=== PATIENT | male | born 1980 | race Caucasian/White ===

== ENCOUNTER 2022-12-04 13:23 | Outpatient (OUT) | payer OTHER, SELFPAY ==
[2022-12-04 14:18] LABS: Basophils Absolute Auto 0.1 10^3/uL (0.0-0.1); Basophils Percent Auto 0.7 % (0.2-2.0); Eosinophils Absolute Auto 0.1 10^3/uL (0.0-0.7); Eosinophils Percent Auto 2.1 % (0.9-7.0); Hemoglobin 17.6 g/dL (14.0-18.0); Immature Granulocytes Abs Auto 0.02 10^3/uL (0.00-0.03); Immature Granulocytes Pct Auto 0.3 % (0.0-0.5); Lymphocytes Absolute Auto 1.7 10^3/uL (1.2-3.8); Lymphocytes Percent Auto 25.4 % (20.5-60.0); Mean Corpuscular HGB Conc 35.2 g/dL (29.9-35.2); Mean Corpuscular Hemoglobin 35.3 pg (25.9-34.0); Mean Corpuscular Volume 100.4 fL (80.0-94.0); Mean Platelet Volume 9.1 fL (9.5-13.5); Monocytes Absolute Auto 0.9 10^3/uL (0.3-0.8); Monocytes Percent Auto 13.4 % (1.7-12.0); Neutrophils Percent Auto 58.1 % (43.0-75.0); Platelet Count 145 10^3/uL (150-450); Red Blood Count 4.98 10^6/uL (4.70-6.10); Red Cell Distribution Width 12.3 % (11.0-15.0); White Blood Count 6.8 10^3/uL (4.0-11.0)
[2022-12-04 15:38] LABS: Estimated Average Glucose 97 mg/dL
[2022-12-04 15:48] LABS: Alanine Aminotransferase 33 U/L (16-63); Albumin Globulin Ratio 0.8; Albumin Level 3.7 g/dL (3.4-5.0); Alkaline Phosphatase 67 U/L (46-116); Anion Gap 14.1; Aspartate Amino Transferase 36 U/L (15-37); BUN Creatinine Ratio 10.6; Bilirubin Direct 0.3 mg/dL (0.0-0.2); Bilirubin Total 1.4 mg/dL (0.2-1.0); Calcium 9.1 mg/dL (8.5-10.1); Carbon Dioxide 23.9 mmol/L (21.0-32.0); Chloride 101 mmol/L (98-107); Chol HDL Ratio 3.8; Cholesterol 179 mg/dL (<=200); Estimated GFR (African America >60 (>=60); Estimated GFR (Non-African Ame >60 (>=60); Globulin 4.4 g/dL; Glucose 97 mg/dL (74-106); HDL Cholesterol 47 mg/dL (40-60); LDL Cholesterol Calculated 114.6 mg/dL; Sodium 135 mmol/L (136-145); Thyroid Stimulating Hormone 2.526 uIU/mL (0.358-3.740); Total Protein 8.1 g/dL (6.4-8.2); Triglycerides 87 mg/dL (<=150); VLDL CHOLESTEROL 17.4 mg/dL
== END 2022-12-04 13:24 | disposition home or self-care (01) ==
PROVIDERS: PCP Family Medicine; Visit Provider Family Medicine
DX: Z00.00 Encounter for general adult medical examination without abnormal findings (principal); E55.9 Vitamin D deficiency, unspecified; Z12.5 Encounter for screening for malignant neoplasm of prostate
CPT/HCPCS: 36415; 80048; 80061; 80076; 82306; 83036; 84443; 85025; G0103

== ENCOUNTER 2023-12-22 15:26 | Outpatient (OUT) | payer OTHER, SELFPAY ==
[2023-12-22 15:49] LABS: Basophils Absolute Auto 0.1 10^3/uL (0.0-0.1); Basophils Percent Auto 1.5 % (0.2-2.0); Eosinophils Absolute Auto 0.1 10^3/uL (0.0-0.7); Hemoglobin 17.6 g/dL (14.0-18.0); Immature Granulocytes Abs Auto 0.01 10^3/uL (0.00-0.03); Immature Granulocytes Pct Auto 0.1 % (0.0-0.5); Lymphocytes Absolute Auto 2.1 10^3/uL (1.2-3.8); Lymphocytes Percent Auto 31.1 % (20.5-60.0); Mean Corpuscular HGB Conc 35.2 g/dL (29.9-35.2); Mean Corpuscular Hemoglobin 35.5 pg (25.9-34.0); Mean Corpuscular Volume 100.8 fL (80.0-94.0); Mean Platelet Volume 8.9 fL (9.5-13.5); Monocytes Percent Auto 14.4 % (1.7-12.0); Neutrophils Absolute Auto 3.5 10^3/uL (1.4-6.5); Neutrophils Percent Auto 50.9 % (43.0-75.0); Platelet Count 158 10^3/uL (150-450); Red Blood Count 4.96 10^6/uL (4.70-6.10); Red Cell Distribution Width 12.1 % (11.0-15.0); White Blood Count 6.9 10^3/uL (4.0-11.0)
[2023-12-22 15:59] LABS: Estimated Average Glucose 97 mg/dL
[2023-12-22 16:26] LABS: Alanine Aminotransferase 66 U/L (16-63); Albumin Globulin Ratio 0.9; Albumin Level 3.6 g/dL (3.4-5.0); Alkaline Phosphatase 85 U/L (46-116); Anion Gap 11.5; Aspartate Amino Transferase 48 U/L (15-37); BUN Creatinine Ratio 6.5; Bilirubin Direct 0.2 mg/dL (0.0-0.2); Bilirubin Total 0.7 mg/dL (0.2-1.0); Calcium 8.8 mg/dL (8.5-10.1); Carbon Dioxide 31.5 mmol/L (21.0-32.0); Chloride 100 mmol/L (98-107); Chol HDL Ratio 3.3; Cholesterol 193 mg/dL (<=200); Estimated GFR (African America >60 (>=60 mL/min/1.73m^2); Estimated GFR (Non-African Ame >60 (>=60 mL/min/1.73m^2); Globulin 4.2 g/dL; Glucose 99 mg/dL (74-106); HDL Cholesterol 59 mg/dL (40-60); Sodium 139 mmol/L (136-145); Total Protein 7.8 g/dL (6.4-8.2); Triglycerides 240 mg/dL (<=150)
== END 2023-12-22 15:27 | disposition home or self-care (01) ==
LOC: LAB 15:27
PROVIDERS: PCP Family Medicine; Visit Provider Family Medicine
DX: Z00.00 Encounter for general adult medical examination without abnormal findings (principal)
CPT/HCPCS: 36415; 80048; 80061; 80076; 83036; 84443; 85025; G0103

== ENCOUNTER 2024-08-10 16:54 | Observation (INO) | payer OTHER, SELFPAY ==
[2024-08-10 17:24] VITALS: BP 132/77; PULSE 98; TEMP 37.4; O2SAT 97; BMI 40.1
--- OUTSIDE RECORDS SUMMARY | 2024-08-10 17:36 | XMS_ITS | CCD ---
Author Organization [facility] Care Team Providers Care Laborer [facility] Name Role Phone DR MING RATLIFF Admitting Unavailable DR MING RATLIFF Attending Unavailable DR MING RATLIFF Primary Care Unavailable DR MING RATLIFF Consulting Ming Saleem MD Primary Care Provider [phone] MING RATLIFF Attending Unavailable MING RATLIFF Attending Unavailable MING RATLIFF Attending Unavailable Medications Current Medications Medication Drug Class(es) Dates Sig (Normalized) Sig (Original) losartan potassium 25 mg oral tablet (9 sources) Angiotensin 2 Receptor Gabriela Start: 01-20-2024 take 1 tablet by mouth once daily losartan (Cozaar) 25 MG tablet Indications: Benign essential hypertension (CMS/HCC) Take 1 tablet (25 mg) by mouth Daily 30 tablet 5 01/20/2024 Active Start: 12-08-2023 take 1 tablet by raphael th once daily losartan (Cozaar) 25 MG tablet Indications: Benign essential hypertension (CMS/HCC) Take 1 tablet (25 mg) by mouth Daily 30 tablet 5 12/08/2023 Active Problems Active Problems Problem Classification Problem Date Documented Da te Episodic/Chronic Essential hypertension (15 sources) Benign essential hypertension; Translations: [Essential (primary) hypertension] Onset: 12-08-2023 12-08-2023 Chronic Other nutritional; endocrine; and metabolic disorders (9 sources) Morbid obesity; Translations: [Morbid (severe) obesity due to excess calories] Onset: 12-08-2023 12-08-2023 Chronic Other nutritional; endocrine; and metabolic disorders (4 sources) Severe obesity; Translations: [Class 2 severe obesity due to excess calories with serious comorbidity and body mass index (BMI) of 39.0 to 39.9 in adult (CMS/HCC)] Onset: 12-08-2023 03-03-2024 Chronic Other screening for suspected conditions (not mental disorders or infectious disease) (2 sources) Patient encounter status; Translations: [Encounter for screening for malignant neoplasm of colon] 03-03-2024 Episodic Past or Other Problems Problem Classification Problem Date Documented Da te Episodic/Chronic Unclassified (2 sources) Patient encounter status 03-03-2024 Results Test Name Value Interpretation Reference Range Facility Provider Letteron 03-18-2024 Provider Letter Provider Letter March 18, 2024 NADEEM NELSONDANIAL [address] [place] [address] : 1980 Dear Mr. Lozada, We have been trying to reach you with no success regarding a referral from Dr Ratliff. It is important that you return our call upon receiving this letter. Also, at the time of your call, please provide us with your current information. Thank you for your prompt attention to this matter. Sincerely, [facility] [phone] Normal [facility] ALL CBC WITH AUTO DIFFon BASOPHILS ABSOLUTE AUTO 0.1 [facility] Basophils/100 WBC (Bld) 1.5 % 0.2 - 2.0 % [facility] Eosinophils/100 WBC (Bld) 2.0 % 0.9 - 7.0 % [facility] Erythrocyte distribution width (RBC) [Ratio] 12.1 % 11.0 - 15.0 % [facility] Hematocrit (Bld) [Volume fraction] 50.0 % 42.0 - 54.0 % [facility] Hemoglobin (Bld) [Mass/Vol] 17.6 g/dL 14.0 - 18.0 g/dL [facility] IMMATURE GRANULOCYTES ABS AUTO 0.01 [facility] Immature granulocytes/100 WBC (Bld) 0.1 % 0.0 - 0.5 % [facility] Interpretation and review of laboratory results Abnormal [facility] LYMPHOCYTES ABSOLUTE AUTO 2.1 [facility] Lymphocytes/100 WBC (Bld) 31.1 % 20.5 - 60.0 % [facility] MCH (RBC) [Entitic mass] 35.5 pg High 25.9 - 34.0 pg [facility] MCHC (RBC) [Mass/Vol] 35.2 g/dL 29.9 - 35.2 g/dL [facility] MCV (RBC) [Entitic vol] 100.8 fL High 80.0 - 94.0 fL [facility] MONOCYTES ABSOLUTE AUTO 1.0 High [facility] Monocytes/100 WBC (Bld) 14.4 % High 1.7 - 12.0 % [facility] NEUTROPHILS ABSOLUTE AUTO 3.5 [facility] Neutrophils/100 WBC (Bld) 50.9 % 43.0 - 75.0 % [facility] Platelet mean volume (Bld) [Entitic vol] 8.9 fL Low 9.5 - 13.5 fL [facility] EO # 0.1 [facility] PLT 158 [facility] RBC 4.96 [facility] WBC 6.9 [facility] CBC AUTO DIFFon 12-24-2021 BASO # 0.1 103/ul Normal 0.0-0.1 [facility] Comment on above: Performed By: #### C BC #### [facility] [address] [place] [address] Dr. Zayra Lincoln Basophils/100 WBC (Bld) 0.7 % Normal 0.2-2.0 [facility] Comment on above: Performed By: #### C BC #### [facility] [address] [address] [address] Zayra Lincoln EO # 0.1 103/ul Normal 0.0-0.7 [facility] Comment on above: Performed By: #### C BC #### [facility] [address] [place] [address] Dr. Zayra Lincoln Eosinophils/100 WBC (Bld) 1.6 % Normal 0.9-7.0 [facility] Comment on above: Performed By: #### C BC #### [facility] [address] [place] [address] Dr. Zayra Lincoln Erythrocyte distribution width (RBC) [Ratio] 11.8 % Normal 11.0-15.0 [facility] Comment on above: Performed By: #### C BC #### [facility] [address] [place] [address] Dr. Zayra Lincoln Hematocrit (Bld) [Volume fraction] 48.2 % Normal 42.0-54.0 [facility] Comment on above: Performed By: #### C BC #### [facility] [address] [place] [address] Dr. Zayra Lincoln Hemoglobin (Bld) [Mass/Vol] 16.9 g/dL Normal 14.0-18.0 [facility] Comment on above: Performed By: #### C BC #### [facility] [address] [address] [address] Zayra Lincoln IG # 0.02 10e3/ul Normal 0.00-0.03 [facility] Comment on above: Performed By: #### C BC #### [facility] [address] [place] [address] Dr. Zayra Lincoln IG % 0.3 % Normal 0.0-0.5 [facility] Comment on above: Performed By: #### C BC #### [facility] [address] [place] [address] Dr. Zayra Lincoln LYMPH # 1.9 103/ul Normal 1.2-3.8 [facility] Comment on above: Performed By: #### C BC #### [facility] [address] [place] [address] Dr. Zayra Lincoln Lymphocytes/100 WBC (Bld) 25.7 % Normal 20.5-60.0 [facility] Comment on above: Performed By: #### C BC #### [facility] [address] [place] [address] Dr. Zayra Lincoln MANUAL DIFF REQ NO Normal [facility] Comment on above: Performed By: #### C BC #### [facility] [address] [place] [address] Dr. Zayra Lincoln MCH (RBC) [Entitic mass] 34.1 pg Critically high 25.9-34.0 [facility] Comment on above: Performed By: #### C BC #### [facility] [address] [place] [address] Dr. Zayra Lincoln MCHC (RBC) [Mass/Vol] 35.1 g/dL Normal 29.9-35.2 [facility] Comment on above: Performed By: #### C BC #### [facility] [address] [place] [address] Dr. Zayra Lincoln MCV (RBC) [Entitic vol] 97.2 fL Critically high 80.0-94.0 [facility] Comment on above: Performed By: #### C BC #### [facility] [address] [address] [address] Zayra Lincoln MONO # 0.9 103/ul Critically high 0.3-0.8 [facility] Comment on above: Performed By: #### C BC #### [facility] [address] [address] [address] Zayra Lincoln Monocytes/100 WBC (Bld) 12.7 % Critically high 1.7-12.0 [facility] Comment on above: Performed By: #### C BC #### [facility] [address] [address] [address] Zayra Lincoln NEUT # 4.3 103/ul Normal 1.4-6.5 [facility] Comment on above: Performed By: #### C BC #### [facility] [address] [place] [address] Dr. Zayra Lincoln Neutrophils/100 WBC (Bld) 59.0 % Normal 43.0-75.0 [facility] Comment on above: Performed By: #### C BC #### [facility] [address] [address] [address] Zayra Lincoln Platelet mean volume (Bld) [Entitic vol] 10.2 fL Normal 9.5-13.5 [facility] Comment on above: Performed By: #### C BC #### [facility] [address] [place] [address] Dr. Zayra Lincoln PLT 136 103/ul Critically low 150-450 [facility] Comment on above: Performed By: #### C BC #### [facility] [address] [address] [address] Zayra Lincoln RBC 4.96 106/ul Normal 4.70-6.10 [facility] Comment on above: Performed By: #### C BC #### [facility] [address] [address] [address] Zayra Lincoln WBC 7.4 103/ul Normal 4.0-11.0 [facility] Comment on above: Performed By: #### C BC #### [facility] [address] [address] [address] Zayra Lincoln GLYCOHEMOGLOBIN A1Con 2021 ADA RECOMMENDATION SEE BELOW Normal [facility] Comment on above: Result Comment: ADA RECOMMENDED LIMIT 4.0 - 6.0 ADA THERAPEUTIC TARGET < 7.0 ACTION SUGGESTED > 7.0 Performed By: #### A 1C #### [facility] [address] [place] [address] Dr. Zayra Lincoln Glucose [Mass/Vol] 100 mg/dL Normal [facility] Comment on above: Performed By: #### A 1C #### [facility] [address] [place] [address] Dr. Zayra Linclon HbA1c (Bld) [Mass fraction] 5.1 % Normal 4.5-6.2 [facility] Comment on above: Performed By: #### A 1C #### [facility] [address] [place] [address] Dr. Zayra Lincoln LIPID PROFILEon 12-24-2021 CHOL-HDL RATIO NORM SEE BELOW Normal [facility] Comment on above: Result Comment: 3.3 - 4.4 LOW RISK 4.4 - 7.1 AVERAGE RISK 7.1 - 11.0 MODERATE RISK >11.0 HIGH RISK Performed By: #### L IPID, TSH, LIVER, BMP #### [facility] [address] [place] [address] Dr. Zayra Lincoln Cholesterol [Mass/Vol] 199 mg/dL Normal <=200 [facility] Comment on above: Performed By: #### L IPID, TSH, LIVER, BMP #### [facility] [address] [place] [address] Dr. Zayra Lincoln Cholesterol in HDL [Mass/Vol] 57 mg/dL Normal 40-60 [facility] Comment on above: Performed By: #### L IPID, TSH, LIVER, BMP #### [facility] [address] [place] [address] Dr. Zayra Lincoln Cholesterol in LDL [Mass/Vol] 115.2 mg/dL Normal [facility] Comment on above: Performed By: #### L IPID, TSH, LIVER, BMP #### [facility] [address] [address] [address] Zayra Lincoln Cholesterol.total/C holesterol in HDL [Mass ratio] 3.5 {ratio} Normal [facility] Comment on above: Performed By: #### L IPID, TSH, LIVER, BMP #### [facility] [address] [address] [address] Zayra Lincoln HDL NORMAL > or = 60 mg/dl - LO W CARDIOVASCULAR RISK <40 mg/dl - HIGH CARDIOVASCULAR RISK Normal [facility] Comment on above: Performed By: #### L IPID, TSH, LIVER, BMP #### [facility] [address] [address] [address] Zayra Lincoln LDL CALC NORMAL SEE BELOW Normal [facility] Comment on above: Result Comment: <100 mg/dl OPTIMAL 100 - 129 mg/dl NEAR OR ABOVE OPTIMAL 130 - 159 mg/dl BORDERLINE HIGH 160 - 189 mg/dl HIGH >190 mg/dl VERY HIGH Performed By: #### L IPID, TSH, LIVER, BMP #### [facility] [address] [address] [address] Zayra Lincoln Triglyceride [Mass/Vol] 134 mg/dL Normal <=150 [facility] Comment on above: Performed By: #### L IPID, TSH, LIVER, BMP #### [facility] [address] [address] [address] Zayra Lincoln VLDL CALC 26.8 mg/dL Normal [facility] Comment on above: Performed By: #### L IPID, TSH, LIVER, BMP #### [facility] [address] [address] [address] Zayra Lincoln LIVER PROFILEon 12-24-2021 Albumin [Mass/Vol] 3.7 g/dL Normal 3.4-5.0 [facility] Comment on above: Performed By: #### L IPID, TSH, LIVER, BMP #### [facility] [address] [address] [address] Zayra Lincoln Albumin/Globulin [Mass ratio] 0.9 {ratio} Normal [facility] Comment on above: Performed By: #### L IPID, TSH, LIVER, BMP #### [facility] [address] [address] [address] Zayra Lincoln ALP [Catalytic activity/Vol] 71 U/L Normal 46-116 [facility] Comment on above: Performed By: #### L IPID, TSH, LIVER, BMP #### [facility] [address] [place] [address] Dr. Zayra Lincoln ALT [Catalytic activity/Vol] 36 U/L Normal 16-63 [facility] Comment on above: Performed By: #### L IPID, TSH, LIVER, BMP #### [facility] [address] [place] [address] Dr. Zayra Lincoln AST [Catalytic activity/Vol] 31 U/L Normal 15-37 [facility] Comment on above: Performed By: #### L IPID, TSH, LIVER, BMP #### [facility] [address] [place] [address] Dr. Zayra Lincoln BILI, CONJUGATED 0.3 mg/dL Critically high 0.0-0.2 [facility] Comment on above: Performed By: #### L IPID, TSH, LIVER, BMP #### [facility] [address] [place] [address] Dr. Zayra Lincoln Bilirubin [Mass/Vol] 1.3 mg/dL Critically high 0.2-1.0 [facility] Comment on above: Performed By: #### L IPID, TSH, LIVER, BMP #### [facility] [address] [place] [address] Dr. Zayra Lincoln Globulin (S) [Mass/Vol] 4.3 g/dL Normal [facility] Comment on above: Performed By: #### L IPID, TSH, LIVER, BMP #### [facility] [address] [address] [address] Zayra Lincoln Protein [Mass/Vol] 8.0 g/dL Normal 6.4-8.2 [facility] Comment on above: Performed By: #### L IPID, TSH, LIVER, BMP #### [facility] [address] [address] [address] Zayra Lincoln PROF CHEM 8 (BAS METB)on Anion gap [Moles/Vol] 12.7 mmol/L Normal [facility] Comment on above: Performed By: #### L IPID, TSH, LIVER, BMP #### [facility] [address] [address] [address] Zayra Lincoln Calcium [Mass/Vol] 9.3 mg/dL Normal 8.5-10.1 [facility] Comment on above: Performed By: #### L IPID, TSH, LIVER, BMP #### [facility] [address] [place] [address] Dr. Zayra Lincoln Chloride [Moles/Vol] 100 mmol/L Normal 98-107 [facility] Comment on above: Performed By: #### L IPID, TSH, LIVER, BMP #### [facility] [address] [place] [address] Dr. Zayra Lincoln CO2 [Moles/Vol] 28.3 mmol/L Normal 21.0-32.0 [facility] Comment on above: Performed By: #### L IPID, TSH, LIVER, BMP #### [facility] [address] [place] [address] Dr. Zayra Lincoln Creatinine [Mass/Vol] 0.98 mg/dL Normal 0.70-1.30 [facility] Comment on above: Performed By: #### L IPID, TSH, LIVER, BMP #### [facility] [address] [place] [address] Dr. Zayra Lincoln EGFR-AF DJIBOUTIAN >60 Normal >=60 [facility] Comment on above: Performed By: #### L IPID, TSH, LIVER, BMP #### [facility] [address] [place] [address] Dr. Zayra Lincoln EGFR-NON AF DJIBOUTIAN >60 Normal >=60 [facility] Comment on above: Performed By: #### L IPID, TSH, LIVER, BMP #### [facility] [address] [address] [address] Zayra Lincoln Glucose [Mass/Vol] 101 mg/dL Normal 74-106 [facility] Comment on above: Performed By: #### L IPID, TSH, LIVER, BMP #### [facility] [address] [place] [address] Dr. Zayra Lincoln Potassium [Moles/Vol] 4.0 mmol/L Normal 3.5-5.1 [facility] Comment on above: Performed By: #### L IPID, TSH, LIVER, BMP #### [facility] [address] [place] [address] Dr. Zayra Lincoln Sodium [Moles/Vol] 137 mmol/L Normal 136-145 [facility] Comment on above: Performed By: #### L IPID, TSH, LIVER, BMP #### [facility] [address] [place] [address] Dr. Zayra Lincoln Urea nitrogen [Mass/Vol] 9.0 mg/dL Normal 7.0-18.0 [facility] Comment on above: Performed By: #### L IPID, TSH, LIVER, BMP #### [facility] [address] [place] [address] Dr. Zayra Lincoln Urea nitrogen/Creatinine [Mass ratio] 9.2 mg/mg Normal [facility] Comment on above: Performed By: #### L IPID, TSH, LIVER, BMP #### [facility] [address] [place] [address] Dr. Zayra Lincoln TSHon 12-24-2021 TSH 2.309 uIU/mL Normal 0.358-3.740 [facility] Comment on above: Performed By: #### L IPID, TSH, LIVER, BMP #### [facility] [address] [place] [address] Dr. Zayra Lincoln VITAMIN D 25 OHon 12-24-2021 VIT D 25-OH 43.4 ng/mL Normal [facility] Comment on above: Performed By: #### P SASC, VITAD #### [facility] [address] [place] [address] Dr. Zayra Lincoln VIT D RANGES SEE BELOW Normal [facility] Comment on above: Result Comment: <20 ng/mL Vit D deficient 20 - <30 ng/mL Vit D insufficient 30 - 100 ng/mL Vit D sufficient >100 ng/mL Potential Toxicity Performed By: #### P SASC, VITAD #### [facility] [address] [address] [address] Zayra Lincoln Neurosurgery Office/Clinic N oteon 04-06-2019 Neurosurgery Office/Clinic Note Chief Complaint Patient states neck Physical Exam Vitals & Measurements BP: 134/86 HT: 185 cm WT: 127 kg DOSE WT: 127 kg BMI: 37.11 Additional Vitals Body Mass Index Measured: 37.11 kg/m2 Peripheral Pulse Rate: 76 bpm BP Position/Location: Sitting, Left arm Assessment/Plan 1. Acute cervical radiculopathy, Cervical radiculopathy at C8 3. Cervical spine degeneration Pleasant 39-year-old right-handed gentleman with a history of hypertension as well as childhood febrile seizures was in his usual state of health 2 days before and noted neck stiffness. On the morning of , he developed severe pain in his right posterior shoulder with radiation into the posterior aspect of his right arm and medial epicondyle of the right arm. By 2018, his pain was even worse. He visited his chiropractor on the day after and while he was suffering 10/10 pain, induction of chiropractic management has found the patient with 80% improvement over the last 3-1/2 weeks. Initially, the patient noted classic paresthetic pain radiating in a C8 distribution with numbness in his fifth digit right hand. This is been associated with weakness. He also had difficulty sleeping secondary to pain such that he would use a recliner. Due to the improvement with chiropractic/time, the patient has become significantly more comfortable such that he now sleeps without difficulty through the evening. He now rates his pain on average between 2-3 over 10 and if he is walking, has essentially no pain. Riding in a car does aggravate his pain to approximately 5/10. Furthermore, the patient believes that right hand weakness seems to be improving. He has no symptoms in his midline cervical spine nor in his left upper extremity or the lower extremities. Patient has no headache, nausea, vomiting, trauma, fever, chills and is eating well. Currently, the patient takes no anyl-gvt-[id number] medication or prescription medication for this condition. 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 He is counseled regarding the deleterious effects of both of these habits, particularly as pertains to his spine-he and his acknowledge Constitutional: [No fevers, chills, sweats] Eye: [No recent visual problems] ENMT: [No ear pain, nasal congestion, sore throat] Respiratory: [No shortness of breath, cough] Cardiovascular: [No Chest pain, palpitations, syncope] Gastrointestinal: [No nausea, vomiting, diarrhea] Genitourinary: [No hematuria] GENERAL PHYSICAL EXAM: GENERAL: well developed, over nourished, no distress HEAD: normocephalic, atraumatic EYES: anicteric, atraumatic MUCOUS MEMBRANES: Moist, no evidence of dehydration NECK: supple, modestly diminished range of motion in extension secondary to creation of supraspinatus pain right side, no deformity noted; no cervical adenopathy; no carotid bruits; no tracheal deviation; no winging of the scapula; no drooping of the shoulder; no evidence of neurotension signs such as Lhermitte's or Spurling sign CHEST: clear CARDIAC: normal heart sounds no murmurs or extra sounds SHOULDER: Full range of motion on active and passive evaluation; no evidence of impingement or rotator cuff tendinopathy, negative empty can testing [] PERIPHERAL NERVES: no tinel's signs carpal, cubital, or peroneal, no digital compression provocation SPINE: no evidence of scoliosis, rib hump, deformities or step-offs. No trigger points or myospasm VASCULAR: strong pulses with rapid capillary refill, no evidence of Raynaud's phenomenon, autonomic disturbance, venous insufficiency, or thoracic outlet syndrome. HIP: no Fabere's or Prince's sign LUMBAR: range of motion normal; no evidence of neurotension signs such as straight leg raise or reverse straight leg raise or femoral stretch test. PAIN BEHAVIOR: No evidence of Rizwan's findings or overt pain behavior. NEUROLOGICAL EXAM: MENTAL STATUS: Awake alert and appropriate with normal mental status exam and executive function CRANIAL NERVES: Round reactive pupils without ophthalmoplegia, no visual field defects to confrontation, no nystagmus, no evidence of Carlos syndrome, equal facies, equal auditory perception to confrontation, bilaterally upgoing palate, midline tongue without atrophy or fasciculations and full range of motion, equal trapezial strength and sternocleidomastoid strength. MOTOR: normal tone and bulk in all groups with full power except intrinsic musculature innervated by C8 right hand where he demonstrates 4/5 power including opposition and abduction; no evidence of atrophy or fasciculations. DEEP TENDON REFLEXES: All reflexes 1-2+ including triceps which are 2+ bilaterally;no evidence of myelopathic features such as Lew's, pectoral reflex, clonus, Babinski SENSORY EXAM: Hypesthesia C8 autonomous zone CEREBELLAR: No lateralization, no dysmetria or dysdiadochokinesia. GAIT: Patient demonstrates full ability to toe and heel walk as well as squat/1 leg squat and demonstrates normal tandem gait; normal base, station, stride length, and katja. Imaging-surgeon independent interpretation: MRI cervical spine [facility] March 2019 of modest quality indicates multilevel degenerative disc disease with sizable disc osteophyte formation C5-6 left side with mild cord deformation but without signal change, disc osteophyte formation C6-7 right side with moderate neuroforaminal narrowing but no cord compression; large soft high intensity disc extrusion C7-T1 right side filling the proximal foramen. 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 While the patient had severe pain and motor neuropathy to begin with, the patient is noted significant improvement in his pain in the last 3-1/2 weeks such that his pain on average is 2-3 over 10 on a VAS scale. Furthermore, the patient reports subjective improvement in motor power. I did review the imaging with the patient and his on large screen TV and made them aware the pathophysiology of degenerative disc disease and opportunities including surgical decompression via laminoforaminotomy/micr odiscectomy on an MIS basis/outpatient. The rationale for said surgery is identified but I confessed that given his significant improvement with palliative care specialist and time, the role for surgery is unclear as he has underlying root injury that will not likely be significantly affected by surgical decompression and will require natural restorative measures through nerve regeneration. I did note that surgery would eliminate the remaining pain that he has but he finds this insufficient to proceed with surgery. We discussed the various options available and he is very comfortable with proceeding with observation. In the interim, he will avoid lifting greater than 10 pounds and avoid any sudden motions of the neck. Patient will be reassessed in 2 to 3 weeks and based on performance, may be a candidate for surgical consideration, re-immersion in chiropractic/physical therapy, or even consideration of reimaging for assessment. I spent approximately 35 minutes with the patient and his and we reviewed imaging on large screen TV. The patient is quite comfortable with avoidance of surgical intervention at this time. He is also educated regarding the deleterious effects of his nicotine and alcohol on spinal health/relationship with advancing disc degeneration. He acknowledges. All questions answered to their satisfaction Problem List/Past Medical History Ongoing Acute cervical radiculopathy Cervical radiculopathy at C8 Cervical spine degeneration Historical No qualifying data Medications No active medications Allergies No Known Allergies Social History Alcohol Current, Beer, 3-5 times per week Home/Environment Feels unsafe at home: No. Sexual History of sexual abuse: No. Substance Abuse Denies All Tobacco 5-9 cigarettes (between 1/4 to 1/2 pack)/day in last 30 days Use:. Family History Cancer: Mother, Grandfather (M) and Grandfather (P).Negative: Grandmother (P). Diabetes: Grandmother (P). Electronically signed by ___ Brenton QUEZADA MD, Bob York 04/06/19 11:50 EST [facility] Provider Letteron 04-06-2019 Provider Letter (Inserted Image. Ann ble to display) Jeffrey Jordan[address] [address] Re: Nadeem Lozada : 1980 Date of Visit: 04/06/2019 Dear Jeffrey Ortega, Thank you for referring Nadeem Lozada to our office. Attached you will find my office visit note. Please contact our office if you have any questions or concerns. Sincerely, Bob Farris III, MD The following document(s) were included in the letter: April 06, 2019 11:38:18 EST - (04/06/2019) Neurosurgery Office Visit Note [facility] Provider Letter (Inserted Image. Ann ble to display) Ming Ratliff MD [address] [place] [address] Re: Nadeem Lozada : 1980 Date of Visit: 04/06/2019 Dear Ming Ratliff, Thank you for referring Nadeem Lozada to our office. Attached you will find my office visit note. Please contact our office if you have any questions or concerns. Sincerely, Bob Farris III, MD The following document(s) were included in the letter: April 06, 2019 11:38:18 EST - (04/06/2019) Neurosurgery Office Visit Note [facility] Provider Letter (Inserted Image. Ann ble to display) Ming Ratliff MD [address] [place] [address] Re: Nadeem Nelsondanial Date of Visit: 04/06/2019 Dear Ming Ratliff, Let me know if you have any questions or concerns. Sincerely, DAMIEN Minaya MD C Providers: Jeffrey Ortega The following document(s) were included in the letter: April 06, 2019 11:38:18 EST - (04/06/2019) Neurosurgery Office Visit Note [facility] Vital Signs Date Time Vital Sign Value Performing Clinician Rochellei maggie 03-03-2024 15:29-0500 Body height 182.9 cm Ming Ratliff MD Work Phone: [facility] 03-03-2024 15:29-0500 Body mass index (BMI) [Ratio] 39.6 kg/m2 Ming Ratliff MD Work Phone: [facility] 03-03-2024 15:29-0500 Body temperature 96.6 [degF] Ming Ratliff MD Work Phone: [facility] 03-03-2024 15:29-0500 Body weight 132.45 kg Ming Ratliff MD Work Phone: [facility] 03-03-2024 15:29-0500 Diastolic blood pressure 76 mm[Hg] Ming Ratliff MD Work Phone: [facility] 03-03-2024 15:29-0500 Heart rate 98 /min Ming Ratliff MD Work Phone: [facility] 03-03-2024 15:29-0500 Respiratory rate 20 /min Ming Ratliff MD Work Phone: [facility] 03-03-2024 15:29-0500 SaO2% (BldA) [Mass fraction] 97 % Ming Ratliff MD Work Phone: [facility] 03-03-2024 15:29-0500 Systolic blood pressure 128 mm[Hg] Ming Ratliff MD Work Phone: [facility] 12-24-2023 14:35-0400 Body height 182.9 cm Ming Ratliff MD Work Phone: [facility] 12-24-2023 14:35-0400 Body mass index (BMI) [Ratio] 40.69 kg/m2 Ming Ratliff MD Work Phone: [facility] 12-24-2023 14:35-0400 Body temperature 96.21 [degF] Ming Ratliff MD Work Phone: [facility] 12-24-2023 14:35-0400 Body weight 136.08 kg Ming Ratliff MD Work Phone: [facility] 12-24-2023 14:35-0400 Diastolic blood pressure 98 mm[Hg] Ming Ratliff MD Work Phone: [facility] 12-24-2023 14:35-0400 Heart rate 111 /min Ming Ratliff MD Work Phone: [facility] 12-24-2023 14:35-0400 Respiratory rate 18 /min Ming Ratliff MD Work Phone: [facility] 12-24-2023 14:35-0400 SaO2% (BldA) [Mass fraction] 97 % Ming Ratliff MD Work Phone: [facility] 12-24-2023 14:35-0400 Systolic blood pressure 160 mm[Hg] Ming Ratliff MD Work Phone: [facility] 12-08-2023 15:07-0400 Body height 182.9 cm Ming Ratliff MD Work Phone: [facility] 12-08-2023 15:07-0400 Body mass index (BMI) [Ratio] 40.69 kg/m2 Ming Ratliff MD Work Phone: [facility] 12-08-2023 15:07-0400 Body temperature 97.5 [degF] Ming Ratliff MD Work Phone: [facility] 12-08-2023 15:07-0400 Body weight 136.08 kg Ming Ratliff MD Work Phone: [facility] 12-08-2023 15:07-0400 Diastolic blood pressure 100 mm[Hg] Ming Ratliff MD Work Phone: [facility] 12-08-2023 15:07-0400 Heart rate 93 /min Ming Ratliff MD Work Phone: [facility] 12-08-2023 15:07-0400 Respiratory rate 18 /min Ming Ratliff MD Work Phone: [facility] 12-08-2023 15:07-0400 SaO2% (BldA) [Mass fraction] 96 % Ming Ratliff MD Work Phone: [facility] 12-08-2023 15:07-0400 Systolic blood pressure 164 mm[Hg] Ming Ratliff MD Work Phone: [facility] Encounters Encounter Date Encounter Type Care Provider Facility Start: 03-07-2024 ambulatory Facility:[facility] Start: 03-04-2024 ambulatory Facility:[facility] Start: 03-03-2024 End: 03-03-2024 ambulatory MING RATLIFF Not Available Start: 03-03-2024 End: 03-03-2024 Office outpatient visit 15 minutes Ming Ratliff MD Work Phone: [facility] Comment on above: Benign essential hyp ertension (CMS/HCC) (Primary Dx); Class 2 severe obesity due to excess calories with serious comorbidity and body mass index (BMI) of 39.0 to 39.9 in adult (CMS/HCC); Colon cancer screening Start: 03-03-2024 End: 03-03-2024 Bamboo flowsheet Ming Ratliff MD Work Phone: [facility] Start: 03-03-2024 End: 03-03-2024 Bamboo flowsheet Ming Ratliff MD Work Phone: [facility] Start: 12-24-2023 End: 12-24-2023 Office outpatient visit 15 minutes Ming Ratliff MD Work Phone: [facility] Comment on above: Benign essential hyp ertension (CMS/HCC) (Primary Dx) Start: 12-24-2023 End: 12-24-2023 ambulatory MING RATLIFF Not Available Start: 12-24-2023 End: 12-24-2023 Bamboo flowsheet Ming Ratliff MD Work Phone: [facility] Start: 12-24-2023 End: 12-24-2023 Bamboo flowsheet Ming Ratliff MD Work Phone: [facility] Start: 12-22-2023 End: 12-22-2023 Clinisync Result Encounter Ming Ratliff MD Work Phone: [facility] Unsolicited Start: 12-22-2023 End: 12-22-2023 Clinisync Result Encounter Ming Ratliff MD Work Phone: [facility] Unsolicited Start: 12-08-2023 End: 12-08-2023 Periodic preventive med est patient 40-64yrs Ming Ratliff MD Work Phone: [facility] Comment on above: Annual physical exam (Primary Dx); Benign essential hypertension (CMS/HCC); Morbid obesity due to excess calories (CMS/HCC) Start: 12-08-2023 End: 12-08-2023 ambulatory MING RATLIFF Not Available Start: 12-08-2023 End: 12-08-2023 Bamboo flowsheet Ming Ratliff MD Work Phone: [facility] Start: 12-08-2023 End: 12-08-2023 Bamboo flowsheet Ming Ratliff MD Work Phone: [facility] Start: 12-08-2023 End: 12-08-2023 Patient encounter procedure Ming Ratliff MD Work Phone: [facility] Start: 12-24-2021 End: 12-25-[address] MING RATLIFF Facility:[facility] Procedures Date Procedure Procedure Detail Performing Clinician Start: 12-22-2023 ALL CBC WITH AUTO DIFF Ming Ratliff MD Work Phone: Start: 12-24-[address] MING SIBLEY Comment on above: Performed By: #### P SASC, VITAD #### [facility] [address] [place] [address] Dr. Zayra Lincoln Plan of Treatment Date Care Activity Detail Author Start: 09-01-2024 End: 09-01-2024 Patient encounter procedure 09/01/2024 3:00 PM EDT Office Visit [facility] [address] [place] [address] Ming Ratliff MD [address] [place] [phone] [facility] Start: 03-03-2024 End: 03-03-2024 Patient encounter procedure 03/03/2024 3:15 PM EST Office Visit [facility] [address] [place] [address] Ming Ratliff MD [address] [place] [phone] [facility] Start: 01-14-2024 End: 01-14-2024 Patient encounter procedure 01/14/2024 3:00 PM EDT Office Visit [facility] [address] [place] [address] Ming Ratliff MD [address] [place] [phone] [facility] Start: 12-24-2023 End: 12-24-2023 Patient encounter procedure [facility] Comment on above: Arrived Start: 12-08-2023 End: 12-08-2023 Patient encounter procedure 12/08/2023 3:00 PM EDT Office Visit [facility] [address] [place] [address] Ming Ratliff MD [address] [place] [phone] Arrived [facility] Comment on above: Arrived Start: 12-08-2023 End: 12-07-2024 Basic metabolic 1998 panel - Serum or Plasma Basic metabolic panel Lab Routine Annual physical exam Expected: 12/08/2023 (Approximate), Expires: 12/07/2024 [facility] Comment on above: Expected: 12/08/2023 (Approximate), Expires: 12/07/2024 Start: 12-08-2023 End: 12-07-2024 CBC W Auto Differential panel - Blood CBC and differential Lab Routine Annual physical exam Expected: 12/08/2023 (Approximate), Expires: 12/07/2024 [facility] Comment on above: Expected: 12/08/2023 (Approximate), Expires: 12/07/2024 Start: 12-08-2023 End: 12-07-2024 Hemoglobin A1c/Hemoglobin.total in Blood Hemoglobin A1c Lab Routine Annual physical exam Expected: 12/08/2023 (Approximate), Expires: 12/07/2024 [facility] Work Phone: Comment on above: Expected: 12/08/2023 (Approximate), Expires: 12/07/2024 Start: 12-08-2023 End: 12-07-2024 Hepatic function 2000 panel - Serum or Plasma Hepatic function panel Lab Routine Annual physical exam Expected: 12/08/2023 (Approximate), Expires: 12/07/2024 [facility] Comment on above: Expected: 12/08/2023 (Approximate), Expires: 12/07/2024 Start: 12-08-2023 End: 12-07-2024 Lipid 1996 panel - Serum or Plasma Lipid panel Lab Routine Annual physical exam Expected: 12/08/2023 (Approximate), Expires: 12/07/2024 [facility] Comment on above: Expected: 12/08/2023 (Approximate), Expires: 12/07/2024 Start: 12-08-2023 End: 12-07-2024 Prostate specific Ag [Mass/volume] in Serum or Plasma PSA Lab Routine Annual physical exam Expected: 12/08/2023 (Approximate), Expires: 12/07/2024 [facility] Comment on above: Expected: 12/08/2023 (Approximate), Expires: 12/07/2024 Start: 12-08-2023 End: 12-07-2024 Thyrotropin [Units/volume] in Serum or Plasma TSH Lab Routine Annual physical exam Expected: 12/08/2023 (Approximate), Expires: 12/07/2024 [facility] Comment on above: Expected: 12/08/2023 (Approximate), Expires: 12/07/2024 Start: 11-15-2023 Influenza vaccination Influenza Vacc ine (#1) [facility] Start: 1980 Screening for malign ant neoplasm of colon [facility] Payers Date Payer Category Payer Private Health Insurance [facility] [id number] 2023 Unknown [id number] 2022 Unknown [id number] 1980 Unknown [id number] 1980 Unknown [id number] 1979 Unknown [id number] 1979 Unknown [id number] 1959 Unknown [id number] 1959 Unknown [id number] Social History Date Type Detail Facility Start: 12-08-2023 [facility] History of tobacco use Cigarette Smoker [facility] Start: 12-08-2023 Tobacco use and exposure Smokeless t obacco non-user [facility] Start: 12-08-2023 End: 03-03-2024 History of Social function [facility] Start: 12-08-2023 End: 03-03-2024 Tobacco use panel [facility] Start: 1980 Sex assigned at Not on file [facility] smoking consumption unknown [facility] History of Present illness Narrative 03-03-2024 Ming Ratliff MD - 03/03/2024 3:41 PM Elyssa Ratliff MD - 03/03/2024 3:40 PM Elyssa Ratliff MD - 03/03/2024 3:15 PM EST Note Date & Type Note Facility 03-03-2024 History of Presen t illness Narrative Associated Problem(s): Class 2 severe obesity due to excess calories with serious comorbidity and body mass index (BMI) of 39.0 to 39.9 in adult (CMS/HCC) Weight down 8 pounds since last visit. Discussed proper diet and regular aerobic exercise. Recommend Weight Watchers and need to limit calories and smaller portions. Need to increase activity and regular aerobic exercise several days a week for 30 minutes at a time. Associated Problem(s): Benign essential hypertension ([facility]) BP controlled and monitor PRN. Images from the original note were not included. Subjective Patient ID: Nadeem Lozada is a 44 y.o. male who presents for Follow-up (1m). Follow up HTN and weight. Patient feels well today. Checking BP PRN and typically controlled. BP normal today. Taking medication daily and tolerating without side effects. Weight down 8 pounds since last visit. Tries to stay active around house. Tries to watch diet and eat healthy. Increased fruits and vegetables. Smaller portions and limits snacking. Tries to limit total daily calories. Review of Systems Constitutional: Negative for fatigue. Respiratory: Negative for cough, shortness of breath and wheezing. Cardiovascular: Negative for chest pain and palpitations. Gastrointestinal: Negative for abdominal pain, diarrhea, nausea and vomiting. Genitourinary: Negative for dysuria. Objective Physical Exam Constitutional: General: He is not in acute distress. Appearance: Normal appearance. HENT: Head: Normocephalic. Right Ear: Tympanic membrane and ear canal normal. Left Ear: Tympanic membrane and ear canal normal. Eyes: Extraocular Movements: Extraocular movements intact. Pupils: Pupils are equal, round, and reactive to light. Cardiovascular: Rate and Rhythm: Normal rate and regular rhythm. Heart sounds: No murmur heard. No friction rub. No gallop. Pulmonary: Breath sounds: Normal breath sounds. No wheezing, rhonchi or rales. Abdominal: General: Bowel sounds are normal. There is no distension. Palpations: Abdomen is soft. Tenderness: There is no abdominal tenderness. There is no guarding or rebound. Musculoskeletal: Left lower leg: No edema. Neurological: Mental Status: He is alert. Assessment/Plan Problem List Items Addressed This Visit Benign essential hypertension (CMS/HCC) - Primary BP controlled and monitor PRN. Class 2 severe obesity due to excess calories with serious comorbidity and body mass index (BMI) of 39.0 to 39.9 in adult (CMS/HCC) Weight down 8 pounds since last visit. Discussed proper diet and regular aerobic exercise. Recommend Weight Watchers and need to limit calories and smaller portions. Need to increase activity and regular aerobic exercise several days a week for 30 minutes at a time. Other Visit Diagnoses Colon cancer screening Relevant Orders Ambulatory referral to General Surgery documented in this encounter [facility] History of Present illness Narrative 12-24-2023 Ming Ratliff MD - 12/24/2023 2:57 PM EDTMjoanna Ratliff MD - 12/24/2023 2:30 PM EDT Note Date & Type Note Facility 12-24-2023 History of Presen t illness Narrative Associated Problem(s): Benign essential hypertension (CMS/HCC) BP controlled and monitor PRN. Discussed DASH diet. Images from the original note were not included. Subjective Patient ID: Nadeem Lozada is a 43 y.o. male who presents for Follow-up (Bp running low?). Follow up HTN. Last visit added losartan for HTN and initially did well. Monitors BP daily. BP improved and normal then started to go low. BP 100/64 and developed severe fatigue. Mild symptoms with position changes and if up and moving. Stopped medication and BP improved. Over the next few days BP started to elevated and 160/98. Resumed medication for past week and BP improved. BP elevated today but walked here from work. BP 132/93 earlier today. Review of Systems Constitutional: Negative for fatigue. Respiratory: Negative for cough, shortness of breath and wheezing. Cardiovascular: Negative for chest pain and palpitations. Gastrointestinal: Negative for abdominal pain, diarrhea, nausea and vomiting. Genitourinary: Negative for dysuria. Objective Physical Exam Constitutional: General: He is not in acute distress. Appearance: Normal appearance. HENT: Head: Normocephalic. Right Ear: Tympanic membrane and ear canal normal. Left Ear: Tympanic membrane and ear canal normal. Eyes: Extraocular Movements: Extraocular movements intact. Pupils: Pupils are equal, round, and reactive to light. Cardiovascular: Rate and Rhythm: Normal rate and regular rhythm. Heart sounds: No murmur heard. No friction rub. No gallop. Pulmonary: Breath sounds: Normal breath sounds. No wheezing, rhonchi or rales. Abdominal: General: Bowel sounds are normal. There is no distension. Palpations: Abdomen is soft. Tenderness: There is no abdominal tenderness. There is no guarding or rebound. Musculoskeletal: Left lower leg: No edema. Neurological: Mental Status: He is alert. Assessment/Plan Problem List Items Addressed This Visit Benign essential hypertension (CMS/HCC) - Primary BP controlled and monitor PRN. Discussed DASH diet. documented in this encounter [facility] History of Present illness Narrative 12-08-2023 Ming Ratliff MD - 12/08/2023 4:20 PM Charles Ratliff MD - 12/08/2023 4:20 PM Charles Ratliff MD - 12/08/2023 4:19 PM Charles Ratliff MD - 12/08/2023 3:00 PM EDT Note Date & Type Note Facility 12-08-2023 History of Presen t illness Narrative Associated Problem(s): Morbid obesity due to excess calories (CMS/HCC) Discussed proper diet and regular aerobic exercise. Recommend Weight Watchers and need to limit calories and smaller portions. Need to increase activity and regular aerobic exercise several days a week for 30 minutes at a time. Associated Problem(s): Benign essential hypertension (CMS/HCC) BP elevated and start losartan. Monitor BP PRN. Discussed DASH diet. Associated Problem(s): Annual physical exam Due for labs. Discussed proper diet and regular aerobic exercise. Need aerobic exercise 5-6 days a week for 30 minutes at a time. Smaller portions and limit total calories. Colonoscopy after age 45. Tetanus every 10 years. Advised not to smoke. Discussed daily Aspirin therapy. Images from the original note were not included. Subjective Patient ID: Nadeem Lozada is a 43 y.o. male who presents for Annual Exam (wellness). Presents for annual PE. Patient feels well today. Weight up 4 pounds in past year. Changed jobs and no longer active at work. Tries to increase activity and exercise on own. Tries to watch diet and eat healthy. Increased fruits and vegetables. Smaller portions and limits snacking. Tries to limit total daily calories. Due for labs. BP elevated over the past several weeks. Checking PRN and 140-150 systolic. BP 164/100 today. Not on medication for several years. Review of Systems Constitutional: Negative for fatigue. Respiratory: Negative for cough, shortness of breath and wheezing. Cardiovascular: Negative for chest pain and palpitations. Gastrointestinal: Negative for abdominal pain, diarrhea, nausea and vomiting. Genitourinary: Negative for dysuria. Objective Physical Exam Constitutional: General: He is not in acute distress. Appearance: Normal appearance. HENT: Head: Normocephalic. Right Ear: Tympanic membrane and ear canal normal. Left Ear: Tympanic membrane and ear canal normal. Eyes: Extraocular Movements: Extraocular movements intact. Pupils: Pupils are equal, round, and reactive to light. Cardiovascular: Rate and Rhythm: Normal rate and regular rhythm. Heart sounds: No murmur heard. No friction rub. No gallop. Pulmonary: Breath sounds: Normal breath sounds. No wheezing, rhonchi or rales. Abdominal: General: Bowel sounds are normal. There is no distension. Palpations: Abdomen is soft. Tenderness: There is no abdominal tenderness. There is no guarding or rebound. Musculoskeletal: General: Normal range of motion. Left lower leg: No edema. Neurological: General: No focal deficit present. Mental Status: He is alert. Cranial Nerves: No cranial nerve deficit. Deep Tendon Reflexes: Reflexes normal. Assessment/Plan Problem List Items Addressed This Visit Annual physical exam - Primary Due for labs. Discussed proper diet and regular aerobic exercise. Need aerobic exercise 5-6 days a week for 30 minutes at a time. Smaller portions and limit total calories. Colonoscopy after age 45. Tetanus every 10 years. Advised not to smoke. Discussed daily Aspirin therapy. Relevant Orders Hemoglobin A1c Basic metabolic panel CBC and differential Hepatic function panel Lipid panel PSA TSH Benign essential hypertension (CMS/HCC) BP elevated and start losartan. Monitor BP PRN. Discussed DASH diet. Relevant Medications losartan (Cozaar) 25 MG tablet Morbid obesity due to excess calories (CMS/HCC) Discussed proper diet and regular aerobic exercise. Recommend Weight Watchers and need to limit calories and smaller portions. Need to increase activity and regular aerobic exercise several days a week for 30 minutes at a time. documented in this encounter [facility] Evaluation note Note Date & Type Note Facility Evaluation note Diagnosis Benign essential hypertension (CMS/HCC)- Primary Essential hypertension, benign documented in this encounter [facility] Evaluation note Note Date & Type Note Facility Evaluation note Diagnosis Annual physical exam- Primary Routine general medical examination at a health care facility Benign essential hypertension (CMS/HCC) Essential hypertension, benign Morbid obesity due to excess calories (CMS/HCC) documented in this encounter [facility] Evaluation note Note Date & Type Note Facility Evaluation note Diagnosis Annual physical exam- Primary Routine general medical examination at a health care facility Benign essential hypertension (CMS/HCC) Essential hypertension, benign Morbid obesity due to excess calories (CMS/HCC) Benign essential hypertension (CMS/HCC)- Primary Essential hypertension, benign Benign essential hypertension (CMS/HCC)- Primary Essential hypertension, benign Class 2 severe obesity due to excess calories with serious comorbidity and body mass index (BMI) of 39.0 to 39.9 in adult (CMS/HCC) Colon cancer screening Special screening for malignant neoplasms, colon documented in this encounter [facility] Healthcare Summary Purpose Family History No Family History Records FoundNo Family History Records FoundNo Family History Records FoundNo Family History Records Found Advance Directives No Advanced Directives Records FoundNo Advanced Directives Records FoundNo Advanced Directives Records FoundNo Advanced Directives Records Found Additional Source Comments (unrecognized sect ion and content) No Status Records FoundNo Status Records FoundNo Status Records FoundNo Status Records Found INFORMATION SOURCE (unrecogn ized section and content) DATE CREATED AUTHOR 04/07/2019 [facility] DATE CREATED AUTHOR AUTHOR'S ORGANIZ ATION 12/25/2021 [facility] DATE CREATED AUTHOR AUTHOR'S ORGANIZ ATION 03/07/2024 [facility] EPIC DATE CREATED AUTHOR AUTHOR'S ORGANIZ ATION 03/25/2024 [facility] Care Teams (unrecognized sec tion and content) [facility] Relationship Specialty Start Date End Date Ming Ratliff MD [address] [place] [id number] PCP - General Family Medicine 12/08/23 [facility] Relationship Specialty Start Date End Date Ming Ratliff MD [address] [place] [phone] PCP - General Family Medicine 12/08/23 [facility] Relationship Specialty Start Date End Date Ming Ratliff MD [address] [place] [phone] PCP - General Family Medicine 12/08/23 [facility] Relationship Specialty Start Date End Date Ming Ratliff MD [address] [place] [phone] PCP - General Family Medicine 12/08/23 [facility] Relationship Specialty Start Date End Date Ming Ratliff MD [address] [place] [phone] PCP - General Family Medicine 12/08/23 [facility] Relationship Specialty Start Date End Date Ming Ratliff MD [address] [place] [address] PCP - General Family Medicine 12/08/23 Reason for Visit (unrecogniz ed section and content) Reason Comments Follow-up Bp running low? Reason Comments Annual Exam wellness Reason Comments Follow-up 1m FOR RECORDS PERTAINING TO PATIENTS WHO ARE OR HAVE BEEN ENROLLED IN A CHEMICAL DEPENDENCY/SUBSTANCEABUSE PROGRAM, SOME INFORMATION MAY BE OMITTED. This clinical summary was aggregated from multiple sources. Caution should be exercised in using it in the provision of clinical care. This summary normalizes information from multiple sources, and as a consequence, information in this document may materially change the coding, format and clinical context of patient data. In addition, data may be omitted in some cases. CLINICAL DECISIONS SHOULD BE BASED ON THE PRIMARY CLINICAL RECORDS. [employer] provides no warranty or guarantee of the accuracy or completeness of information in this document.
[2024-08-10 17:50] LABS: Hemoglobin 17.3 g/dL (14.0-18.0); Mean Corpuscular Hemoglobin 35.8 pg (25.9-34.0); Mean Corpuscular Volume 99.4 fL (80.0-94.0); Platelet Count 138 10^3/uL (150-450); Red Blood Count 4.83 10^6/uL (4.70-6.10); Red Cell Distribution Width 12.4 % (11.0-15.0); White Blood Count 18.3 10^3/uL (4.0-11.0)
[2024-08-10 18:01] LABS: Anion Gap 14.3; BUN Creatinine Ratio 14.4; Calcium 9.5 mg/dL (8.5-10.1); Carbon Dioxide 27.6 mmol/L (21.0-32.0); Chloride 98 mmol/L (98-107); Estimated GFR (African America >60 (>=60 mL/min/1.73m^2); Estimated GFR (Non-African Ame >60 (>=60 mL/min/1.73m^2); Glucose 103 mg/dL (74-106); Potassium 3.9 mmol/L (3.5-5.1); Sodium 136 mmol/L (136-145)
--- NOTE | 2024-08-10 18:03 | ED.GENADUL1 ---
HPI HPI - General Adult General Chief complaint: Animal Bite Stated complaint: CAT BITE Time Seen by Provider: 08/10/24 17:36 Source: patient and family Mode of arrival: walk-in Limitations: no limitations History of Present Illness HPI narrative: 44-year-old male presents to the emergency department for redness and swelling to the left hand. He was bitten by a cat 3 days ago. Yesterday he was seen at urgent care and prescribed Augmentin. It has been more than 20 years since he has had a tetanus shot. He has had increasing redness and swelling in his hand. He has not had a fever or drainage. No other injury was sustained. Related Data Allergies Allergy/AdvReac Type Severity Reaction Status Date / Time No Known Drug Allergies Allergy Verified 08/10/24 17:24 Opioid HPI Opioid Management Most Recent Opioid Data: Last Pain Scale 8 Today, 17:24 Review of Systems ROS Narrative A ten point review of systems is negative except as noted above. PFSH PFSH Social History Little interest or pleasure in doing things: not at all Feeling down, depressed, or hopeless: not at all Exam Narrative Exam Narrative: Nurses note and vital signs reviewed and patient is not hypoxic. General: The patient appears well and in no apparent distress. Patient is resting comfortably on cart. Skin: Warm, dry, no pallor noted. There is no rash noted. Head: Normocephalic, atraumatic Eye: Normal conjunctiva, no drainage Ears, Nose, Mouth, and Throat: oral mucosa is moist. Nares patent. Cardiovascular: Regular Rate and Rhythm Respiratory: Patient is in no distress, no accessory muscle use, lungs are clear to auscultation, no wheezing, rales or rhonchi Back: non-tender GI: Soft and nontender Musculoskeletal: The left hand has erythema and swelling. There is no drainage. He has some healing puncture macias. Fingers have good range of motion. He has a small amount of lymphangitis on the left forearm, flexor side. Neurological: A&O, normal speech Psychiatric: Cooperative Constitutional Vital Signs, click to edit/add: Last Vital Signs Temp 99.4 F 08/10/24 17:24 Pulse 98 H 08/10/24 17:24 Resp 18 08/10/24 17:24 BP 132/77 08/10/24 17:24 Pulse Ox 97 08/10/24 17:24 O2 Del Method Room Air 08/10/24 17:24 Course Vital Signs Vital signs: Vital Signs Temperature 99.4 F 08/10/24 17:24 Pulse Rate 98 H 08/10/24 17:24 Respiratory Rate 18 08/10/24 17:24 Blood Pressure 132/77 08/10/24 17:24 Pulse Oximetry 97 08/10/24 17:24 Oxygen Delivery Method Room Air 08/10/24 17:24 Temperature 99.4 F 08/10/24 17:24 Pulse Rate 98 H 08/10/24 17:24 Respiratory Rate 18 08/10/24 17:24 Blood Pressure 132/77 08/10/24 17:24 Pulse Oximetry 97 08/10/24 17:24 Oxygen Delivery Method Room Air 08/10/24 17:24 Medical Decision Making MDM Narrative Medical decision making narrative: Blood cultures were obtained and he was given IV Unasyn. Tetanus status is updated and he is being admitted for IV antibiotics. Treatment diagnosis and disposition were discussed with the patient. Differential Diagnosis Differential Diagnosis: Cellulitis, abscess, foreign body Lab Data Lab results reviewed: Yes I reviewed the patient's lab results Labs: Lab Results 08/10/24 Range/Units 17:43 WBC 18.3 H (4.0-11.0) 10^3/uL RBC 4.83 (4.70-6.10) 10^6/uL Hgb 17.3 (14.0-18.0) g/dL Hct 48.0 (42.0-54.0) % MCV 99.4 H (80.0-94.0) fL MCH 35.8 H (25.9-34.0) pg MCHC 36.0 H (29.9-35.2) g/dL RDW 12.4 (11.0-15.0) % Plt Count 138 L (150-450) 10^3/uL MPV 9.0 L (9.5-13.5) fL Imaging Data Left hand: My impression: No fracture or foreign body Discharge Plan Discharge Chief Complaint: Animal Bite Clinical Impression: Dog bite, Cellulitis of left hand Patient Disposition: Admitted as Observation Time of Disposition Decision: 18:03 Condition: Fair
[2024-08-10 18:12] LABS: Lactate/Lactic Acid 1.2 mmol/L (0.4-2.0)
[2024-08-10] MEDS: AMPICILLIN SODIUM/SULBACTAM NA 3 GM in 0.9 % SODIUM CHLORIDE 100 ML IV (18:16)
[2024-08-10] MEDS: ADACEL DIPH,PERTUSS(ACELL),TET VAC/PF 0.5 ML ADULT SYRINGE IM (18:25)
[2024-08-10 18:36] LABS: Lymphocytes Absolute Manual 1.83 10^3/uL (1.20-3.80); Monocytes Absolute Manual 1.64 10^3/uL (0.30-0.80); Segmented Neut Absolute Manual 14.82 10^3/uL (1.4-6.5)
--- OUTSIDE RECORDS SUMMARY | 2024-08-10 19:05 | XMS_ITS | CCD ---
Author Organization [facility] Care Team Providers Care Activities Specialist Name Role Phone DR MING RATLIFF Admitting Unavailable DR MING RATLIFF Attending Unavailable DR MING RATLIFF Primary Care Unavailable DR MING RATLIFF Consulting Ming Saleem MD Primary Care Provider [phone] MING RATLIFF Attending Unavailable MING RATLIFF Attending [...] 2024 NADEEM NELSONDANIAL [address] [place] [address] : 1980 Dear Mr. Lozada, We have been trying to reach you with no success regarding a referral from Dr Ratliff. It is important that you return our call upon receiving this letter. Also, at the time of your call, please provide us with your current information. Thank you for your prompt attention to this matter. Sincerely, [facility] [phone] Normal [facility] ALL CBC WITH AUTO DIFFon BASOPHILS ABSOLUTE AUTO 0.1 [facility] Basophils/100 WBC (Bld) 1.5 % 0.2 - 2.0 % [facility] Eosinophils/100 WBC (Bld) 2.0 % 0.9 - 7.0 % [facility] Erythrocyte distribution width (RBC) [Ratio] 12.1 % 11.0 - 15.0 % [facility] Hematocrit (Bld) [Volume fraction] 50.0 % 42.0 - 54.0 % [facility] Hemoglobin (Bld) [Mass/Vol] 17.6 g/dL 14.0 - 18.0 g/dL [facility] IMMATURE GRANULOCYTES ABS AUTO 0.01 [facility] Immature granulocytes/100 WBC (Bld) 0.1 % 0.0 - 0.5 % [facility] of [facility] results Abnormal [facility] LYMPHOCYTES ABSOLUTE AUTO 2.1 [facility] Lymphocytes/100 WBC (Bld) 31.1 % 20.5 - 60.0 % [facility] MCH (RBC) [Entitic mass] 35.5 pg High 25.9 - 34.0 pg [facility] MCHC (RBC) [Mass/Vol] 35.2 g/dL 29.9 - 35.2 g/dL [facility] MCV (RBC) [Entitic vol] 100.8 fL High 80.0 - 94.0 fL [facility] MONOCYTES ABSOLUTE AUTO 1.0 High [facility] Monocytes/100 WBC (Bld) 14.4 % High 1.7 - 12.0 % [facility] NEUTROPHILS ABSOLUTE AUTO 3.5 [facility] Neutrophils/100 WBC (Bld) 50.9 % 43.0 - 75.0 % [facility] Platelet mean volume (Bld) [Entitic vol] 8.9 fL Low 9.5 - 13.5 fL [facility] EO # 0.1 [facility] PLT 158 [facility] RBC 4.96 [facility] WBC 6.9 [facility] CBC AUTO DIFFon 12-24-2021 BASO # 0.1 103/ul Normal 0.0-0.1 [facility] Comment on above: Performed By: #### C BC #### [facility] [address] [place] [address] Dr. Zayra Lincoln Basophils/100 WBC (Bld) 0.7 % Normal 0.2-2.0 [facility] Comment on above: Performed By: #### C BC #### [facility] [address] [address] [address] Zayra Lincoln EO # 0.1 103/ul Normal 0.0-0.7 [facility] Comment on above: Performed By: #### C BC #### [facility] [address] [place] [address] Dr. Zayra Lincoln Eosinophils/100 WBC (Bld) 1.6 % Normal 0.9-7.0 [facility] Comment on above: Performed By: #### C BC #### [facility] [address] [place] [address] Dr. Zayra Lincoln Erythrocyte distribution width (RBC) [Ratio] 11.8 % Normal 11.0-15.0 [facility] Comment on above: Performed By: #### C BC #### [facility] [address] [place] [address] Dr. Zayra Lincoln Hematocrit (Bld) [Volume fraction] 48.2 % Normal 42.0-54.0 [facility] Comment on above: Performed By: #### C BC #### [facility] [address] [place] [address] Dr. Zayra Lincoln Hemoglobin (Bld) [Mass/Vol] 16.9 g/dL Normal 14.0-18.0 [facility] Comment on above: Performed By: #### C BC #### [facility] [address] [address] [address] Zayra Lincoln IG # 0.02 10e3/ul Normal 0.00-0.03 [facility] Comment on above: Performed By: #### C BC #### [facility] [address] [place] [address] Dr. Zayra Lincoln IG % 0.3 % Normal 0.0-0.5 [facility] Comment on above: Performed By: #### C BC #### [facility] [address] [place] [address] Dr. Zayra Lincoln LYMPH # 1.9 103/ul Normal 1.2-3.8 [facility] Comment on above: Performed By: #### C BC #### [facility] [address] [place] [address] Dr. Zayra Lincoln Lymphocytes/100 WBC (Bld) 25.7 % Normal 20.5-60.0 [facility] Comment on above: Performed By: #### C BC #### [facility] [address] [place] [address] Dr. Zayra Lincoln MANUAL DIFF REQ NO Normal [facility] Comment on above: Performed By: #### C BC #### [facility] [address] [place] [address] Dr. Zayra Lincoln MCH (RBC) [Entitic mass] 34.1 pg Critically high 25.9-34.0 [facility] Comment on above: Performed By: #### C BC #### [facility] [address] [place] [address] Dr. Zayra Lincoln MCHC (RBC) [Mass/Vol] 35.1 g/dL Normal 29.9-35.2 [facility] Comment on above: Performed By: #### C BC #### [facility] [address] [place] [address] Dr. Zayra Lincoln MCV (RBC) [Entitic vol] 97.2 fL Critically high 80.0-94.0 [facility] Comment on above: Performed By: #### C BC #### [facility] [address] [address] [address] Zayra Lincoln MONO # 0.9 103/ul Critically high 0.3-0.8 [facility] Comment on above: Performed By: #### C BC #### [facility] [address] [address] [address] Zayra Lincoln Monocytes/100 WBC (Bld) 12.7 % Critically high 1.7-12.0 [facility] Comment on above: Performed By: #### C BC #### [facility] [address] [address] [address] Zayra Lincoln NEUT # 4.3 103/ul Normal 1.4-6.5 [facility] Comment on above: Performed By: #### C BC #### [facility] [address] [place] [address] Dr. Zayra Lincoln Neutrophils/100 WBC (Bld) 59.0 % Normal 43.0-75.0 [facility] Comment on above: Performed By: #### C BC #### [facility] [address] [address] [address] Zayra Lincoln Platelet mean volume (Bld) [Entitic vol] 10.2 fL Normal 9.5-13.5 [facility] Comment on above: Performed By: #### C BC #### [facility] [address] [place] [address] Dr. Zayra Lincoln PLT 136 103/ul Critically low 150-450 [facility] Comment on above: Performed By: #### C BC #### [facility] [address] [address] [address] Zayra Lincoln RBC 4.96 106/ul Normal 4.70-6.10 [facility] Comment on above: Performed By: #### C BC #### [facility] [address] [address] [address] Zayra Lincoln WBC 7.4 103/ul Normal 4.0-11.0 [facility] Comment on above: Performed By: #### C BC #### [facility] [address] [address] [address] Zayra Lincoln GLYCOHEMOGLOBIN A1Con 2021 ADA RECOMMENDATION SEE BELOW Normal [facility] Comment on above: Result Comment: ADA RECOMMENDED LIMIT 4.0 - 6.0 ADA THERAPEUTIC TARGET < 7.0 ACTION SUGGESTED > 7.0 Performed By: #### A 1C #### [facility] [address] [place] [address] Dr. Zayra Lincoln Glucose [Mass/Vol] 100 mg/dL Normal [facility] Comment on above: Performed By: #### A 1C #### [facility] [address] [place] [address] Dr. Zayra Lincoln HbA1c (Bld) [Mass fraction] 5.1 % Normal 4.5-6.2 [facility] Comment on above: Performed By: #### A 1C #### [facility] [address] [place] [address] Dr. Zayra Lincoln LIPID PROFILEon 12-24-2021 CHOL-HDL RATIO NORM SEE BELOW Normal [facility] Comment on above: Result Comment: 3.3 - 4.4 LOW RISK 4.4 - 7.1 AVERAGE RISK 7.1 - 11.0 MODERATE RISK >11.0 HIGH RISK Performed By: #### L IPID, TSH, LIVER, BMP #### [facility] [address] [place] [address] Dr. Zayra Lincoln Cholesterol [Mass/Vol] 199 mg/dL Normal <=200 [facility] Comment on above: Performed By: #### L IPID, TSH, LIVER, BMP #### [facility] [address] [place] [address] Dr. Zayra Lincoln Cholesterol in HDL [Mass/Vol] 57 mg/dL Normal 40-60 [facility] Comment on above: Performed By: #### L IPID, TSH, LIVER, BMP #### [facility] [address] [place] [address] Dr. Zayra Lincoln Cholesterol in LDL [Mass/Vol] 115.2 mg/dL Normal [facility] Comment on above: Performed By: #### L IPID, TSH, LIVER, BMP #### [facility] [address] [address] [address] Zayra Lincoln Cholesterol.total/C holesterol in HDL [Mass ratio] 3.5 {ratio} Normal [facility] Comment on above: Performed By: #### L IPID, TSH, LIVER, BMP #### [facility] [address] [address] [address] Zayra Lincoln HDL NORMAL > or = 60 mg/dl - LO W CARDIOVASCULAR RISK <40 mg/dl - HIGH CARDIOVASCULAR RISK Normal [facility] Comment on above: Performed By: #### L IPID, TSH, LIVER, BMP #### [facility] [address] [address] [address] Zayra Lincoln LDL CALC NORMAL SEE BELOW Normal [facility] Comment on above: Result Comment: <100 mg/dl OPTIMAL 100 - 129 mg/dl NEAR OR ABOVE OPTIMAL 130 - 159 mg/dl BORDERLINE HIGH 160 - 189 mg/dl HIGH >190 mg/dl VERY HIGH Performed By: #### L IPID, TSH, LIVER, BMP #### [facility] [address] [address] [address] Zayra Lincoln Triglyceride [Mass/Vol] 134 mg/dL Normal <=150 [facility] Comment on above: Performed By: #### L IPID, TSH, LIVER, BMP #### [facility] [address] [address] [address] Zayra Lincoln VLDL CALC 26.8 mg/dL Normal [facility] Comment on above: Performed By: #### L IPID, TSH, LIVER, BMP #### [facility] [address] [address] [address] Zayra Lincoln LIVER PROFILEon 12-24-2021 Albumin [Mass/Vol] 3.7 g/dL Normal 3.4-5.0 [facility] Comment on above: Performed By: #### L IPID, TSH, LIVER, BMP #### [facility] [address] [address] [address] Zayra Lincoln Albumin/Globulin [Mass ratio] 0.9 {ratio} Normal [facility] Comment on above: Performed By: #### L IPID, TSH, LIVER, BMP #### [facility] [address] [address] [address] Zayra Lincoln ALP [Catalytic activity/Vol] 71 U/L Normal 46-116 [facility] Comment on above: Performed By: #### L IPID, TSH, LIVER, BMP #### [facility] [address] [place] [address] Dr. Zayra Lincoln ALT [Catalytic activity/Vol] 36 U/L Normal 16-63 [facility] Comment on above: Performed By: #### L IPID, TSH, LIVER, BMP #### [facility] [address] [place] [address] Dr. Zayra Lincoln AST [Catalytic activity/Vol] 31 U/L Normal 15-37 [facility] Comment on above: Performed By: #### L IPID, TSH, LIVER, BMP #### [facility] [address] [place] [address] Dr. Zayra Lincoln BILI, CONJUGATED 0.3 mg/dL Critically high 0.0-0.2 [facility] Comment on above: Performed By: #### L IPID, TSH, LIVER, BMP #### [facility] [address] [place] [address] Dr. Zayra Lincoln Bilirubin [Mass/Vol] 1.3 mg/dL Critically high 0.2-1.0 [facility] Comment on above: Performed By: #### L IPID, TSH, LIVER, BMP #### [facility] [address] [place] [address] Dr. Zayra Lincoln Globulin (S) [Mass/Vol] 4.3 g/dL Normal [facility] Comment on above: Performed By: #### L IPID, TSH, LIVER, BMP #### [facility] [address] [address] [address] Zayra Lincoln Protein [Mass/Vol] 8.0 g/dL Normal 6.4-8.2 [facility] Comment on above: Performed By: #### L IPID, TSH, LIVER, BMP #### [facility] [address] [address] [address] Zayra Lincoln PROF CHEM 8 (BAS METB)on Anion gap [Moles/Vol] 12.7 mmol/L Normal [facility] Comment on above: Performed By: #### L IPID, TSH, LIVER, BMP #### [facility] [address] [address] [address] Zayra Lincoln Calcium [Mass/Vol] 9.3 mg/dL Normal 8.5-10.1 [facility] Comment on above: Performed By: #### L IPID, TSH, LIVER, BMP #### [facility] [address] [place] [address] Dr. Zayra Lincoln Chloride [Moles/Vol] 100 mmol/L Normal 98-107 [facility] Comment on above: Performed By: #### L IPID, TSH, LIVER, BMP #### [facility] [address] [place] [address] Dr. Zayra Lincoln CO2 [Moles/Vol] 28.3 mmol/L Normal 21.0-32.0 [facility] Comment on above: Performed By: #### L IPID, TSH, LIVER, BMP #### [facility] [address] [place] [address] Dr. Zayra Lincoln Creatinine [Mass/Vol] 0.98 mg/dL Normal 0.70-1.30 [facility] Comment on above: Performed By: #### L IPID, TSH, LIVER, BMP #### [facility] [address] [place] [address] Dr. Zayra Lincoln EGFR-AF TANZANIAN >60 Normal >=60 [facility] Comment on above: Performed By: #### L IPID, TSH, LIVER, BMP #### [facility] [address] [place] [address] Dr. Zayra Lincoln EGFR-NON AF TANZANIAN >60 Normal >=60 [facility] Comment on above: Performed By: #### L IPID, TSH, LIVER, BMP #### [facility] [address] [address] [address] Zayra Lincoln Glucose [Mass/Vol] 101 mg/dL Normal 74-106 [facility] Comment on above: Performed By: #### L IPID, TSH, LIVER, BMP #### [facility] [address] [place] [address] Dr. Zayra Lincoln Potassium [Moles/Vol] 4.0 mmol/L Normal 3.5-5.1 [facility] Comment on above: Performed By: #### L IPID, TSH, LIVER, BMP #### [facility] [address] [place] [address] Dr. Zayra Lincoln Sodium [Moles/Vol] 137 mmol/L Normal 136-145 [facility] Comment on above: Performed By: #### L IPID, TSH, LIVER, BMP #### [facility] [address] [place] [address] Dr. Zayra Lincoln Urea nitrogen [Mass/Vol] 9.0 mg/dL Normal 7.0-18.0 [facility] Comment on above: Performed By: #### L IPID, TSH, LIVER, BMP #### [facility] [address] [place] [address] Dr. Zayra Lincoln Urea nitrogen/Creatinine [Mass ratio] 9.2 mg/mg Normal [facility] Comment on above: Performed By: #### L IPID, TSH, LIVER, BMP #### [facility] [address] [place] [address] Dr. Zayra Lincoln TSHon 12-24-2021 TSH 2.309 uIU/mL Normal 0.358-3.740 [facility] Comment on above: Performed By: #### L IPID, TSH, LIVER, BMP #### [facility] [address] [place] [address] Dr. Zayra Lincoln VITAMIN D 25 OHon 12-24-2021 VIT D 25-OH 43.4 ng/mL Normal [facility] Comment on above: Performed By: #### P SASC, VITAD #### [facility] [address] [place] [address] Dr. Zayra Lincoln VIT D RANGES SEE BELOW Normal [facility] Comment on above: Result Comment: <20 ng/mL Vit D deficient 20 - <30 ng/mL Vit D insufficient 30 - 100 ng/mL Vit D sufficient >100 ng/mL Potential Toxicity Performed By: #### P SASC, VITAD #### [facility] [address] [address] [address] Zayra Lincoln Neurosurgery Office/Clinic N oteon [...] eating well. Currently, the patient takes no [id number] medication or prescription medication for this condition. 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 Imaging-surgeon independent interpretation: MRI cervical spine [facility] March 2019 of modest quality indicates [...] confessed that given his significant improvement with foster care social worker and time, the role for surgery is [...] MD, Bob York 04/06/19 11:50 EST Normal [facility] Provider Letteron 04-06-2019 Provider Letter (Inserted Image. Ann ble to display) Jeffrey Jordan[address] [address] Re: Nadeem Lozada : 1980 Date of [...] - (04/06/2019) Neurosurgery Office Visit Note Normal [facility] Provider Letter (Inserted Image. Ann ble to display) Ming Ratliff MD [address] [place] [address] Re: Nadeem Lozada : 1980 Date of [...] - (04/06/2019) Neurosurgery Office Visit Note Normal [facility] Provider Letter (Inserted Image. Ann ble to display) Ming Ratliff MD [address] [place] [address] Re: Nadeem Nelsondanial Date of Visit: 04/06/2019 Dear Ming Ratliff, Let me know if you have any questions or concerns. Sincerely, DAMIEN Minaya MD C Providers: Jeffrey Ortega The following document(s) were included in the letter: April 06, 2019 11:38:18 EST - (04/06/2019) Neurosurgery Office Visit Note Normal [facility] Vital Signs Date Time Vital Sign Value Performing Clinician Rochellei maggie 03-03-2024 15:29-0500 Body height 182.9 cm Ming Ratliff MD Work Phone: [facility] 03-03-2024 15:29-0500 Body mass index (BMI) [Ratio] 39.6 kg/m2 Ming Ratliff MD Work Phone: [facility] 03-03-2024 15:29-0500 Body temperature 96.6 [degF] Ming Ratliff MD Work Phone: [facility] 03-03-2024 15:29-0500 Body weight 132.45 kg Ming Ratliff MD Work Phone: [facility] 03-03-2024 15:29-0500 Diastolic blood pressure 76 mm[Hg] Ming Ratliff MD Work Phone: [facility] 03-03-2024 15:29-0500 Heart rate 98 /min Ming Ratliff MD Work Phone: [facility] 03-03-2024 15:29-0500 Respiratory rate 20 /min Ming Ratliff MD Work Phone: [facility] 03-03-2024 15:29-0500 SaO2% (BldA) [Mass fraction] 97 % Ming Ratliff MD Work Phone: [facility] 03-03-2024 15:29-0500 Systolic blood pressure 128 mm[Hg] Ming Ratliff MD Work Phone: [facility] 12-24-2023 14:35-0400 Body height 182.9 cm Ming Ratliff MD Work Phone: [facility] 12-24-2023 14:35-0400 Body mass index (BMI) [Ratio] 40.69 kg/m2 Ming Ratliff MD Work Phone: [facility] 12-24-2023 14:35-0400 Body temperature 96.21 [degF] Ming Ratliff MD Work Phone: [facility] 12-24-2023 14:35-0400 Body weight 136.08 kg Ming Ratliff MD Work Phone: [facility] 12-24-2023 14:35-0400 Diastolic blood pressure 98 mm[Hg] Ming Ratliff MD Work Phone: [facility] 12-24-2023 14:35-0400 Heart rate 111 /min Ming Ratliff MD Work Phone: [facility] 12-24-2023 14:35-0400 Respiratory rate 18 /min Ming Ratliff MD Work Phone: [facility] 12-24-2023 14:35-0400 SaO2% (BldA) [Mass fraction] 97 % Ming Ratliff MD Work Phone: [facility] 12-24-2023 14:35-0400 Systolic blood pressure 160 mm[Hg] Ming Ratliff MD Work Phone: [facility] 12-08-2023 15:07-0400 Body height 182.9 cm Ming Ratliff MD Work Phone: [facility] 12-08-2023 15:07-0400 Body mass index (BMI) [Ratio] 40.69 kg/m2 Ming Ratliff MD Work Phone: [facility] 12-08-2023 15:07-0400 Body temperature 97.5 [degF] Ming Ratliff MD Work Phone: [facility] 12-08-2023 15:07-0400 Body weight 136.08 kg Ming Ratliff MD Work Phone: [facility] 12-08-2023 15:07-0400 Diastolic blood pressure 100 mm[Hg] Ming Ratliff MD Work Phone: [facility] 12-08-2023 15:07-0400 Heart rate 93 /min Ming Ratliff MD Work Phone: [facility] 12-08-2023 15:07-0400 Respiratory rate 18 /min Ming Ratliff MD Work Phone: [facility] 12-08-2023 15:07-0400 SaO2% (BldA) [Mass fraction] 96 % Ming Ratliff MD Work Phone: [facility] 12-08-2023 15:07-0400 Systolic blood pressure 164 mm[Hg] [...] patient 40-64yrs Ming Ratliff MD Work Phone: [facility] [facility] Comment on above: Annual physical [...] encounter procedure Ming Ratliff MD Work Phone: [facility] Start: 12-24-2021 End: 12-25-[address] MING RATLIFF Facility:[facility]1 Procedures Date Procedure Procedure Detail Performing Clinician Start: 12-22-2023 ALL CBC WITH AUTO DIFF Ming Ratliff MD Work Phone: Start: 12-24-[address] MING SIBLEY Comment on above: Performed By: #### P SASC, VITAD #### [facility] [address] [place] [address] Dr. Zayra Lincoln Plan of Treatment Date Care Activity Detail Author Start: 09-01-2024 End: 09-01-2024 Patient encounter procedure 09/01/2024 3:00 PM EDT Office Visit [facility] [address] [place] [address] Ming Ratliff MD [address] [place] [id number] [facility] Start: 03-03-2024 End: 03-03-2024 Patient encounter procedure 03/03/2024 3:15 PM EST Office Visit [facility] [address] [place] [address] Ming Ratliff MD [address] [place] [phone] [facility] Start: 01-14-2024 End: 01-14-2024 Patient encounter procedure 01/14/2024 3:00 PM EDT Office Visit [facility] [address] [place] [address] Ming Ratliff MD [address] [place] [phone] [facility] Start: 12-24-2023 End: 12-24-2023 Patient encounter procedure [facility] Comment on above: Arrived Start: 12-08-2023 End: 12-08-2023 Patient encounter procedure 12/08/2023 3:00 PM EDT Office Visit [facility] [address] [place] [address] Ming Ratliff MD [address] [place] [phone] Arrived [facility] Comment on above: [...] Expected: 12/08/2023 (Approximate), Expires: 12/07/2024 [facility] Work Phone: Comment on above: Expected: 12/08/2023 (Approximate), Expires: 12/07/2024 Start: 12-08-2023 End: 12-07-2024 Hepatic function 2000 panel - Serum or Plasma Hepatic function panel Lab Routine Annual physical exam Expected: 12/08/2023 (Approximate), Expires: 12/07/2024 [facility] Comment on above: Expected: 12/08/2023 (Approximate), Expires: 12/07/2024 Start: 12-08-2023 End: 12-07-2024 Lipid 1996 panel - Serum or Plasma Lipid panel Lab Routine Annual physical exam Expected: 12/08/2023 (Approximate), Expires: 12/07/2024 [facility] Comment on above: Expected: 12/08/2023 (Approximate), Expires: 12/07/2024 Start: 12-08-2023 End: 12-07-2024 Prostate specific Ag [Mass/volume] in Serum or Plasma PSA Lab Routine Annual physical exam Expected: 12/08/2023 (Approximate), Expires: 12/07/2024 [facility] Comment on above: Expected: 12/08/2023 (Approximate), Expires: 12/07/2024 Start: 12-08-2023 End: 12-07-2024 Thyrotropin [Units/volume] in Serum or Plasma TSH Lab Routine Annual physical exam Expected: 12/08/2023 (Approximate), Expires: 12/07/2024 [facility] Comment on above: Expected: 12/08/2023 (Approximate), Expires: 12/07/2024 Start: 11-15-2023 Influenza vaccination Influenza Vacc ine (#1) [facility] Start: 1980 Screening for malign ant neoplasm of colon [facility] Payers Date Payer Category Payer Private Health Insurance [facility] [id number] 2023 Unknown [id number] 2022 Unknown [id number] 1980 Unknown [id number] 1980 Unknown [id number] 1980 Unknown [id number] 1980 Unknown [id number] 1960 Unknown [id number] 1960 Unknown [id number] Social History Date Type Detail Facility Start: 12[facility]08-2023 [facility] History of tobacco use Cigarette Smoker [facility] Start: 12-08-2023 Tobacco use and exposure Smokeless t obacco non-user [facility] Start: 12-08-2023 End: 03-03-2024 History of Social function [facility] Start: 12-08-2023 End: 03-03-2024 Tobacco use panel [facility] Start: 1980 Sex assigned at Not on file [facility] consumption unknown [facility] History [...] a time. Associated Problem(s): Benign essential hypertension ([facility]) BP controlled and monitor PRN. Images from [...] at a time. documented in this encounter [facility] Healthcare Evaluation note Note Date & Type Note Facility Evaluation note Diagnosis Benign essential hypertension (CMS/HCC)- Primary Essential hypertension, benign documented in this encounter [facility] Healthcare Evaluation note Note Date & Type Note Facility Evaluation note Diagnosis Annual physical exam- Primary Routine general medical examination at a health care facility Benign essential hypertension (CMS/HCC) Essential hypertension, benign Morbid obesity due to excess calories (CMS/HCC) documented in this encounter [facility] Healthcare Evaluation note Note Date [...] malignant neoplasms, colon documented in this encounter [facility] Healthcare Summary Purpose Family History No Family [...] section and content) DATE CREATED AUTHOR 04/07/2019 [facility] DATE CREATED AUTHOR AUTHOR'S ORGANIZ ATION 12/25/2021 [facility] DATE CREATED AUTHOR AUTHOR'S ORGANIZ ATION 03/07/2024 [facility] EPIC DATE CREATED AUTHOR AUTHOR'S ORGANIZ ATION 03/25/2024 [facility] Care Teams (unrecognized sec tion and content) Activities Specialist Relationship Specialty Start Date End Date Ming Ratliff MD [address] [place] [phone] PCP - General Family Medicine 12/08/23 Activities Specialist Relationship Specialty Start Date End Date Ming Ratliff MD [address] [place] [phone] PCP - General Family Medicine 12/08/23 Activities Specialist Relationship Specialty Start Date End Date Ming Ratliff MD [address] [place] [phone] PCP - General Family Medicine 12/08/23 Activities Specialist Relationship Specialty Start Date End Date Ming Ratliff MD [address] [place] [phone] PCP - General Family Medicine 12/08/23 Activities Specialist Relationship Specialty Start Date End Date Ming Ratliff MD [address] [place] [phone] PCP - General Family Medicine 12/08/23 Activities Specialist Relationship Specialty Start Date End Date Ming Ratliff MD [address] [place] [address] PCP - General Family Medicine 12/08/23 Reason [...] BE BASED ON THE PRIMARY CLINICAL RECORDS. [employer] provides no warranty or guarantee of the accuracy or completeness of information in this document.
[2024-08-10 19:24] VITALS: BP 163/96; PULSE 102; TEMP 36.3; O2SAT 95; BMI 40.1
[2024-08-10 20:32] VITALS: PULSE 102
[2024-08-10] MEDS: KETOROLAC TROMETHAMINE 30 MG/ML VIAL 15 MG IVP (21:36)
[2024-08-10] MEDS: HYDROCODONE/ACET 10-325 MG TABLET 1 TAB PO (21:36)
[2024-08-11] VITALS: BP 152/92; PULSE 89; TEMP 36.6; O2SAT 95
[2024-08-11] MEDS: AMPICILLIN SODIUM/SULBACTAM NA 3 GM in 0.9 % SODIUM CHLORIDE 100 ML IV ×4 (00:37→18:14)
[2024-08-11 04:45] VITALS: BP 148/97; PULSE 70; TEMP 36.9; O2SAT 98
[2024-08-11 05:23] LABS: Basophils Absolute Auto 0.1 10^3/uL (0.0-0.1); Basophils Percent Auto 0.5 % (0.2-2.0); Eosinophils Absolute Auto 0.1 10^3/uL (0.0-0.7); Eosinophils Percent Auto 0.7 % (0.9-7.0); Hemoglobin 15.6 g/dL (14.0-18.0); Immature Granulocytes Abs Auto 0.06 10^3/uL (0.00-0.03); Immature Granulocytes Pct Auto 0.4 % (0.0-0.5); Lymphocytes Percent Auto 15.3 % (20.5-60.0); Mean Corpuscular HGB Conc 34.7 g/dL (29.9-35.2); Mean Corpuscular Hemoglobin 35.1 pg (25.9-34.0); Mean Corpuscular Volume 101.1 fL (80.0-94.0); Mean Platelet Volume 9.4 fL (9.5-13.5); Monocytes Absolute Auto 1.5 10^3/uL (0.3-0.8); Monocytes Percent Auto 10.9 % (1.7-12.0); Neutrophils Absolute Auto 9.6 10^3/uL (1.4-6.5); Neutrophils Percent Auto 72.2 % (43.0-75.0); Platelet Count 123 10^3/uL (150-450); Red Blood Count 4.45 10^6/uL (4.70-6.10); Red Cell Distribution Width 12.5 % (11.0-15.0); White Blood Count 13.4 10^3/uL (4.0-11.0)
[2024-08-11 05:47] LABS: Anion Gap 11.3; BUN Creatinine Ratio 20.2; Calcium 9.1 mg/dL (8.5-10.1); Carbon Dioxide 30.3 mmol/L (21.0-32.0); Chloride 100 mmol/L (98-107); Estimated GFR (African America >60 (>=60 mL/min/1.73m^2); Estimated GFR (Non-African Ame >60 (>=60 mL/min/1.73m^2); Glucose 92 mg/dL (74-106); Potassium 3.6 mmol/L (3.5-5.1); Sodium 138 mmol/L (136-145)
[2024-08-11 07:22] VITALS: BP 139/86; PULSE 67; TEMP 36.8; O2SAT 97
[2024-08-11] MEDS: LOSARTAN POTASSIUM 25 MG TABLET PO (08:39)
--- NOTE | 2024-08-11 10:42 | PM.HP ---
HPI H&P: HPI History of Present Illness Chief complaint: CAT BITE, CELLULITS L HAND Narrative: 44 y/o male to ER with redness and swelling to left hand after a cat bite. Found stray cat in garage and tried to get out. Cat bit his right hand then left. Cleaned hands and mild pain on right. Next day developed redness and swelling to left hand. Developed nausea and felt like running fever. To urgent care and given augmentin. Redness and swelling continued to worsen. Hand tight and hard to bend. Skin red and hot to touch. Swelling involving fingers, hand, and left forearm. To ER and WBC 18.3. Low grade temp 99.4. Admitted for failed outpatient treatment. Started IV unasyn. Much improved overnight. WBC improved. Redness and swelling to hand significantly improved. Hand not as tight or painful. Opioid HPI Opioid Management Most Recent Pain and Opioid Data: Last Pain Scale 3 Today, 07:22 Last Pain Assessment 08/10/24, 20:32 Last MAR Pain Assessment 08/10/24, 21:36 Last ORT Total Score 0 08/10/24, 19:24 Last ORT Risk Category Low Risk 08/10/24, 19:24 Review of Systems ROS Constitutional Reports: chills; Denies: fever or fatigue Cardiovascular Denies: chest pain, palpitations or edema Respiratory Denies: shortness of breath, cough or wheezing Gastrointestinal Reports: nausea; Denies: abdominal pain, vomiting or diarrhea Genitourinary Denies: painful urination PFSH PFS Medical History (Updated 08/11/24 @ 10:46 by Ming Bedoya MD) Dog bite ?W54.0XXA - Bitten by dog, initial encounter (ICD-10) Family History (Updated 08/10/24 @ 18:48 by Deysi Muñoz RN) Father Family history of hypertension Mother Family history of hypertension Family history of cancer Grandfather Family history of hypertension Family history of cancer Grandmother Family history of diabetes mellitus Family history of cancer Social History (Updated 08/10/24 @ 18:49 by Deysi Muñoz RN) Within the past year, how often did you have a drink containing alcohol: 4 or more times a week Smoking status: Current every day smoker Non-prescribed substance use: denies use Highest level of school completed/degree received: high school graduate Little interest or pleasure in doing things: not at all Feeling down, depressed, or hopeless: not at all Meds Home Medications and Allergies Home Medications ?Medication ?Instructions ?Recorded ?Confirmed ?Type amoxicillin 875 mg-potassium 1 tab PO Q12H 08/10/24 08/10/24 History clavulanate 125 mg tablet losartan 25 mg tablet 25 mg PO DAILY 08/10/24 08/10/24 History Allergies Allergy/AdvReac Type Severity Reaction Status Date / Time No Known Drug Allergies Allergy Verified 08/10/24 17:24 Exam Constitutional Vital Signs, click to edit/add: Last Vital Signs Temp 98.3 F 08/11/24 07:22 Pulse 67 08/11/24 07:22 Resp 20 08/11/24 07:22 BP 139/86 08/11/24 07:22 Pulse Ox 97 08/11/24 07:22 O2 Del Method Room Air 08/11/24 07:22 Documenting provider has reviewed patient's vital signs: yes Common normals: no apparent distress, oriented x3 and alert HENMT Common normals: normocephalic Eye Common normals: PERRL and EOMs intact bilaterally Respiratory Common normals: normal respiratory effort and clear to auscultation bilaterally Cardio Common normals: regular rate, regular rhythm, no gallops, no murmurs and no rub GI Common normals: Normal to inspection, nondistended, normoactive bowel sounds present and non-tender Extremity Left upper extremity: upper arm (Redness and swelling to left hand, index finger, thumb, and distal forearm ) Results Labs Labs: Short CBC 08/10/24 08/11/24 Range/Units 17:43 04:46 WBC 18.3 H 13.4 H (4.0-11.0) 10^3/uL Hgb 17.3 15.6 (14.0-18.0) g/dL Hct 48.0 45.0 (42.0-54.0) % Plt Count 138 L 123 L (150-450) 10^3/uL BMP 08/10/24 08/11/24 17:43 04:46 Sodium 136 138 Potassium 3.9 3.6 Chloride 98 100 Carbon Dioxide 27.6 30.3 BUN 14.0 19.0 H Creatinine 0.97 0.94 Glucose 103 92 Calcium 9.5 9.1 Assessment and Plan Assessment and Plan (1) Cellulitis of left hand: (2) Cat bite of hand: Qualifiers: Encounter type: subsequent encounter Laterality: left Qualified Code(s): S61.452D - Open bite of left hand, subsequent encounter; W55.01XD - Bitten by cat, subsequent encounter (3) Hypertension: Qualifiers: Hypertension type: primary hypertension Qualified Code(s): I10 - Essential (primary) hypertension (4) Class 3 severe obesity due to excess calories with serious comorbidity and body mass index (BMI) of 40.0 to 44.9 in adult: Plan Recent cat bite and failed outpatient treatment with augmentin. Started IV unasyn and responding well. Afebrile and WBC improved. Less redness and swelling. Will continue IV antibiotics for another day then likely will be able to go home on oral augmentin tomorrow. Resumed home medication. Monitor vitals and labs.
[2024-08-11 11:04] VITALS: BP 132/82; PULSE 75; TEMP 36.7; O2SAT 96
[2024-08-11] MEDS: 0.9 % SODIUM CHLORIDE 250 ML 10 ML IV (11:37)
--- NOTE | 2024-08-11 12:31 | CM.NOTE ---
Pt is independent at home and no discharge needs identified at this time.
[2024-08-11 16:11] VITALS: BP 135/90; PULSE 66; TEMP 36.9; O2SAT 97
[2024-08-11] MEDS: HYDROCODONE/ACET 5-325 MG TABLET 1 TAB PO (17:17)
[2024-08-11 19:58] VITALS: BP 147/92; PULSE 74; TEMP 36.5; O2SAT 95
[2024-08-12 00:48] VITALS: BP 155/93; PULSE 79; TEMP 36.5; O2SAT 96
[2024-08-12] MEDS: AMPICILLIN SODIUM/SULBACTAM NA 3 GM in 0.9 % SODIUM CHLORIDE 100 ML IV ×3 (00:51→11:29)
[2024-08-12 04:21] VITALS: BP 151/96; PULSE 67; TEMP 36.3; O2SAT 96
[2024-08-12 05:29] LABS: Basophils Absolute Auto 0.1 10^3/uL (0.0-0.1); Basophils Percent Auto 0.7 % (0.2-2.0); Eosinophils Absolute Auto 0.2 10^3/uL (0.0-0.7); Eosinophils Percent Auto 2.3 % (0.9-7.0); Hematocrit 44.4 % (42.0-54.0); Hemoglobin 15.3 g/dL (14.0-18.0); Immature Granulocytes Abs Auto 0.02 10^3/uL (0.00-0.03); Immature Granulocytes Pct Auto 0.2 % (0.0-0.5); Lymphocytes Absolute Auto 1.6 10^3/uL (1.2-3.8); Lymphocytes Percent Auto 18.8 % (20.5-60.0); Mean Corpuscular HGB Conc 34.5 g/dL (29.9-35.2); Mean Corpuscular Volume 101.6 fL (80.0-94.0); Mean Platelet Volume 9.3 fL (9.5-13.5); Monocytes Absolute Auto 1.2 10^3/uL (0.3-0.8); Monocytes Percent Auto 13.8 % (1.7-12.0); Neutrophils Absolute Auto 5.4 10^3/uL (1.4-6.5); Neutrophils Percent Auto 64.2 % (43.0-75.0); Platelet Count 132 10^3/uL (150-450); Red Blood Count 4.37 10^6/uL (4.70-6.10); Red Cell Distribution Width 12.1 % (11.0-15.0); White Blood Count 8.4 10^3/uL (4.0-11.0)
[2024-08-12 05:46] LABS: Anion Gap 16.9; BUN Creatinine Ratio 20.5; Calcium 8.4 mg/dL (8.5-10.1); Carbon Dioxide 26.1 mmol/L (21.0-32.0); Chloride 117 mmol/L (98-107); Estimated GFR (African America >60 (>=60 mL/min/1.73m^2); Estimated GFR (Non-African Ame >60 (>=60 mL/min/1.73m^2); Glucose 105 mg/dL (74-106); Sodium 156 mmol/L (136-145)
[2024-08-12 07:11] LABS: Anion Gap 13.7; BUN Creatinine Ratio 20.8; Calcium 8.4 mg/dL (8.5-10.1); Chloride 102 mmol/L (98-107); Estimated GFR (African America >60 (>=60 mL/min/1.73m^2); Estimated GFR (Non-African Ame >60 (>=60 mL/min/1.73m^2); Glucose 106 mg/dL (74-106); Potassium 3.7 mmol/L (3.5-5.1); Sodium 138 mmol/L (136-145)
--- NOTE | 2024-08-12 08:28 | CM.NOTE ---
Rounds made with Dr. Oscar, pt will discharge to home today on oral antibiotics. No discharge needs identified.
--- NOTE | 2024-08-12 09:04 | PM.DS1 ---
DS: Providers Provider Date of admission: 08/10/24 18:40 Primary care physician: Ming Bedoya MD DS: Diagnosis Discharge Diagnosis (1) Cellulitis of left hand: (2) Cat bite of hand: Qualifiers: Encounter type: subsequent encounter Laterality: left Qualified Code(s): S61.452D - Open bite of left hand, subsequent encounter; W55.01XD - Bitten by cat, subsequent encounter (3) Hypertension: Qualifiers: Hypertension type: primary hypertension Qualified Code(s): I10 - Essential (primary) hypertension (4) Class 3 severe obesity due to excess calories with serious comorbidity and body mass index (BMI) of 40.0 to 44.9 in adult: Plan (1) Cellulitis of left hand: (2) Cat bite of hand: Qualifiers: Encounter type: subsequent encounter Laterality: left Qualified Code(s): S61.452D - Open bite of left hand, subsequent encounter; W55.01XD - Bitten by cat, subsequent encounter (3) Hypertension: Qualifiers: Hypertension type: primary hypertension Qualified Code(s): I10 - Essential (primary) hypertension (4) Class 3 severe obesity due to excess calories with serious comorbidity and body mass index (BMI) of 40.0 to 44.9 in adult: Plan Recent cat bite and failed outpatient treatment with augmentin. Started IV unasyn and responding well. Afebrile and WBC improved. Less redness and swelling. Will continue IV antibiotics for another day then likely will be able to go home on oral augmentin tomorrow. Resumed home medication. Monitor vitals and labs. DS: Summary Hospital Course Hospital Course: Patient seen and evaluated in the emergency room after cat bite he received 3 doses of his oral antibiotic but the pain swelling and erythema are progressing up his arm, he was admitted placed on IV Unasyn with good response, erythema is inside line of demarcation, with responded to Unasyn will discharge patient home to continue his Augmentin but added extra amoxicillin, follow-up with PCP next week Time Spent with Patient Time attestation: Total time spent providing and/or coordinating discharge services: Exam Constitutional Vital Signs, click to edit/add: Last Vital Signs Temp 97.3 F L 08/12/24 04:21 Pulse 67 08/12/24 04:21 Resp 18 08/12/24 04:21 BP 151/96 H 08/12/24 04:21 Pulse Ox 96 08/12/24 04:21 O2 Del Method Room Air 08/12/24 04:21 Documenting provider has reviewed patient's vital signs: yes Common normals: no apparent distress, oriented x3 and alert HENMT Common normals: normocephalic Eye Common normals: PERRL and EOMs intact bilaterally Respiratory Common normals: normal respiratory effort and clear to auscultation bilaterally Cardio Common normals: regular rate, regular rhythm, no gallops, no murmurs and no rub GI Common normals: Normal to inspection, nondistended, normoactive bowel sounds present and non-tender Extremity Left upper extremity: upper arm (Redness and swelling to left hand,-inside the line of demarcation) DS: Data Data Completed and Pending Labs on day of discharge: Labs from last 24 hours 08/12/24 08/12/24 06:47 04:48 WBC 8.4 RBC 4.37 L Hgb 15.3 Hct 44.4 MCV 101.6 H MCH 35.0 H MCHC 34.5 RDW 12.1 Plt Count 132 L MPV 9.3 L Neut % (Auto) 64.2 Lymph % (Auto) 18.8 L [place] % (Auto) 13.8 H Eos % (Auto) 2.3 Baso % (Auto) 0.7 Neut # (Auto) 5.4 Lymph # (Auto) 1.6 [place] # (Auto) 1.2 H Eos # (Auto) 0.2 Baso # (Auto) 0.1 Abs Immat Gran (auto) 0.02 Imm/Tot Granulo (auto) 0.2 Sodium 138 156 H Potassium 3.7 4.0 Chloride 102 117 H Carbon Dioxide 26.0 26.1 Anion Gap 13.7 16.9 BUN 15.0 16.0 Creatinine 0.72 0.78 Est GFR ( Amer) >60 >60 Est GFR (Non-Af Amer) >60 >60 BUN/Creatinine Ratio 20.8 20.5 Glucose 106 105 Calcium 8.4 L 8.4 L Discharge Plan Discharge Disposition: Home, Self-Care Condition: Fair Discharge Medications: New amoxicillin 500 mg capsule 1,000 mg PO Q12H Qty: 40 0RF Rx Instructions: In addition to the augmentin Continued losartan 25 mg tablet 25 mg PO DAILY amoxicillin-pot clavulanate 875-125 mg tablet 1 tab PO Q12H Patient Comments: 08/09/24-08/18/24 Print Language: Nepali Forms: Portal Instructions Follow Up Appointments: Please call Dr. Bedoya's office to schedule a follow up appt. for 5-7 days following discharge. [phone]
[2024-08-12] MEDS: LOSARTAN POTASSIUM 25 MG TABLET PO (10:22)
[2024-08-12 10:26] VITALS: BP 159/106; PULSE 64; TEMP 36.8; O2SAT 96
--- NOTE | 2024-08-12 13:50 | NUTR.NU ---
Pt admitted 08/10/24 w/cat bite to left hand. ATB and nutritional supplements provided. PO intakes of Regular diet are 100%. Encourage healthy, balance diet including high-quality PRO foods at every meal. Fluids encouraged d/t high Na+ and Cl- labs. Planned d/c to home today; will continue to follow PRN.
--- NOTE | 2024-08-16 13:15 | CM.DCFOLLOWU ---
2nd attempt 08/16/24, no answer
--- NOTE | 2024-08-17 10:45 | CM.DCFOLLOWU ---
3rd attempt 08/17/24, no answer
== END 2024-08-12 13:19 | disposition home or self-care (01) ==
LOC: ER 18:07 → MS 19:02
PROVIDERS: Admitting Provider Family Medicine; Emergency Provider Emergency Medicine; PCP Family Medicine; Visit Provider Family Medicine
DX: S61.432A Puncture wound without foreign body of left hand, initial encounter (principal); L03.114 Cellulitis of left upper limb; W55.01XA Bitten by cat, initial encounter; Z23 Encounter for immunization; F17.200 Nicotine dependence, unspecified, uncomplicated; I10 Essential (primary) hypertension; E66.813 Obesity, class 3; Z68.41 Body mass index [BMI] 40.0-44.9, adult
CPT/HCPCS: 36415; 73130; 80048; 83605; 85007; 85025; 85027; 87040; 90471; 90715; 96365; 96366; 96375; 99285; G0378; J0295; J1885